=== PATIENT | female | born 1975 | race Caucasian/White ===

== ENCOUNTER 2024-09-20 10:13 | Emergency (ER) | payer MEDICAID, SELFPAY ==
[2024-09-20 10:41] VITALS: BP 105/70; PULSE 85; RESP 20; TEMP 36.9; O2SAT 96; BMI 38.9
--- NOTE | 2024-09-20 11:03 | XR_ITS ---
Examination: Hand, right 3 views Technique: Hand AP, oblique, lateral 3 views Date and time of exam: September 20, 2024 1123 hours INDICATIONS: Patient fell today with injury to the hand, hand pain FINDINGS: 3 mm old appearing bone density projecting palmar to the proximal carpal row, the appearance should be clinically correlated No dislocation No foreign body IMPRESSION: 3 mm old appearing bone density projecting palmar to the proximal carpal row Recommend wrist films follow-up
--- NOTE | 2024-09-20 11:03 | XR_ITS ---
Examination: Forearm, right, 2 views. Technique: Forearm, AP, lateral 2 views Date and time of exam: September 20, 2024 1123 hours INDICATIONS: Patient fell today with injury to the forearm, forearm pain. FINDINGS: Shaft of the radius and ulna are intact 3 mm bone density projects palmar to the proximal carpal row on the lateral view IMPRESSION: Recommend follow-up wrist films to exclude small chip fracture palmar to the proximal carpal row
--- NOTE | 2024-09-20 12:03 | XR_ITS ---
Examination: Wrist, right 3 views Technique: Wrist AP, oblique, lateral 3 views Date and time of exam: September 20, 2024 1238 hours INDICATIONS: Patient fell today with injury to the wrist, wrist pain. FINDINGS: Old appearing small bone densities palmar to the proximal carpal row, which may be off the navicular No dislocation IMPRESSION: Old appearing small bone densities palmar to the proximal carpal row, but clinical correlation advised
--- NOTE | 2024-09-20 14:15 | PD.EDUPEX ---
Upper Extremity Injury RME/HPI General Chief Complaint: Extremity Injury, Upper Stated Complaint: R ARM PAIN S/P FALL LAST NIGHT Time Seen by Provider: 09/20/24 10:16 Arrival date/time: 09/20/24 10:13 48-year-old female presents to the emergency department complaint of right arm pain after a fall in the shower today patient reports she was not having any chest pain or dizziness prior to the fall patient reports fall was mechanical Limitations: no limitations Related Data Home Medications ?Medication ?Instructions ?Recorded ?Confirmed insulin regular human 100 unit/mL 50 unit PO QDWM ##0 09/16/16 06/24/23 injection solution (Novolin R Regular U-100 Insulin) metoprolol tartrate 50 mg tablet 100 mg PO DAILY #0 tabs 09/16/16 06/25/23 quetiapine 300 mg tablet (Seroquel) 400 mg PO QPM #0 tabs 09/16/16 06/24/23 aspirin 81 mg tablet,delayed 1 tab PO HS 02/14/18 06/25/23 release empagliflozin 12.5 mg-metformin 12.5 tab PO BID 02/14/18 06/24/23 1,000 mg tablet (Synjardy) furosemide 20 mg tablet (Lasix) 20 mg PO QDAY 02/14/18 06/24/23 pantoprazole 40 mg tablet,delayed 40 mg PO BID 02/14/18 06/24/23 release sucralfate 1 gram tablet 1 g PO BID 05/02/19 06/24/23 atorvastatin 40 mg tablet 40 mg PO QDAY 05/24/21 06/24/23 melatonin 10 mg tablet 40 mg PO HS 05/24/21 06/24/23 albuterol sulfate 90 mcg/actuation 1 puff inhalation QID PRN 06/24/23 06/24/23 aerosol inhaler Bronchospasm benztropine 0.5 mg tablet 0.5 mg PO HS 06/24/23 06/24/23 fenofibrate 160 mg tablet 160 mg PO QDAY 06/24/23 06/24/23 gabapentin 600 mg tablet 600 mg PO Q4HR 06/24/23 06/24/23 icosapent ethyl 1 gram capsule 2 g PO BID 06/24/23 06/24/23 (Vascepa) insulin glargine 100 unit/mL (3 80 unit subcut QPM 06/24/23 06/24/23 mL) subcutaneous pen (Basaglar KwikPen U-100 Insulin) medroxyprogesterone 10 mg tablet 10 mg PO QDAY 06/24/23 06/24/23 (Provera) methocarbamol 500 mg tablet 750 mg PO HS 06/24/23 06/24/23 pioglitazone 45 mg tablet (Actos) 45 mg PO QDAY 06/24/23 06/24/23 topiramate 100 mg tablet (Topamax) 100 mg PO BID 06/24/23 06/24/23 Previous Rx's ?Medication ?Instructions ?Recorded acetaminophen 500 mg tablet 500 mg PO Q6H PRN fever or pain 06/25/23 #20 tabs cephalexin 500 mg capsule 500 mg PO QID #28 caps 03/01/24 hydrocodone 5 mg-acetaminophen 325 1 tab PO BID PRN pain #6 tabs 09/20/24 mg tablet ibuprofen 800 mg tablet 800 mg PO TID PRN pain #30 tabs 09/20/24 Allergies Allergy/AdvReac Type Severity Reaction Status Date / Time morphine Allergy Intermediate RED Verified 09/20/24 10:14 BLOTCHES. Review of Systems Review of Systems Systems Reviewed: All systems reviewed, normal except as documented Constitutional Constitutional: Reports system reviewed and no additional complaints, except as documented, Denies fever(s) and Denies headache(s) Eyes Eyes: Reports system reviewed and no additional complaints, except as documented and Denies blurry vision ENT Ears, Nose, Mouth, and Throat: Reports system reviewed and no additional complaints, except as documented, Denies headache(s), Denies nasal congestion and Denies nasal discharge Cardiovascular Cardiovascular: Reports system reviewed and no additional complaints, except as documented, Denies chest pain and Denies dyspnea Respiratory Respiratory: Reports system reviewed and no additional complaints, except as documented, Denies chest congestion, Denies cough and Denies dyspnea Gastrointestinal Gastrointestinal: Reports system reviewed and no additional complaints, except as documented and Denies abdominal pain Musculoskeletal Musculoskeletal: Reports system reviewed and no additional complaints, except as documented, Reports arthralgias, Denies deformity, Denies joint swelling, Denies numbness, Reports stiffness and Denies tingling Integumentary/Breasts Skin/Breast: Reports system reviewed and no additional complaints, except as documented and Denies rash Neurologic Neurologic: Reports system reviewed and no additional complaints, except as documented, Reports as per HPI, Denies headache(s), Denies numbness and Denies tingling Past Medical History Past Medical History NEUROLOGIC: Negative Neurological Disorders CARDIAC: Negative Cardiac Disorders ED Exam General Limitations: Present no limitations General appearance: Present alert and in no apparent distress Head Head exam: Present atraumatic Eye Eye exam: Present normal appearance, PERRL and EOMI; Absent conjunctival injection ENT ENT exam: Present normal exam, normal oropharynx and mucous membranes moist Neck Neck exam: Present normal inspection, full ROM and trachea midline Chest Chest inspection: Present normal inspection and symmetric chest wall rise Respiratory Respiratory exam: Present normal lung sounds bilaterally; Absent respiratory distress Cardiovascular Cardiovascular exam: Present regular rate, normal rhythm and normal heart sounds Abdominal Exam Abdominal exam: Present soft and normal bowel sounds Extremities Exam Extremities exam: Present normal inspection, full ROM, tenderness (Right wrist pain) and normal capillary refill; Absent pedal edema, joint swelling or calf tenderness Back Exam Back exam: Present normal inspection and full ROM Neurological Exam Neurological exam: Present alert, oriented X3 and CN II-XII intact Psychiatric Psychiatric exam: Present normal affect and normal mood Skin Skin exam: Present warm, dry, intact and normal color Course Quality Measures none Orders Category Date Time Status brandon wrap [Splint / Immobilizer] STAT Care 09/21/24 07:03 Active XR forearm RT 2V Stat Exams 09/20/24 11:03 Completed XR hand comp RT min 3V Stat Exams 09/20/24 11:03 Completed XR wrist comp RT min 3V Stat Exams 09/20/24 12:03 Completed Ketorolac Inj [Toradol Inj] Med 09/20/24 14:29 Discontinued 30 mg IM X1 ONE Vital Signs Vital signs: Vital Signs Temperature 98.5 F 09/20/24 10:41 Pulse Rate 85 09/20/24 10:41 Respiratory Rate 20 09/20/24 10:41 Blood Pressure 105/70 09/20/24 10:41 Pulse Oximetry (%) 96 09/20/24 10:41 Oxygen Delivery Method Room Air 09/20/24 10:41 O2 saturation 96% room air within normal limits Extremity Injury MDM Narrative MDM Narrative:: 48-year-old female presents to the emergency department complaint of right arm pain after a fall in the shower today patient reports she was not having any chest pain or dizziness prior to the fall patient reports fall was mechanical On exam patient has tenderness and pain to the right arm I do not appreciate any deformity or swelling X-rays of the right upper extremity obtained no acute fracture dislocation noted Patient placed in Brandon wrap and given Toradol here and discharged home with pain medication Explained to the patient if pain persist she will need to have a CT or MRI for further evaluation Patient data External records reviewed:: [facility] previous records Clinical information provided by:: patient Social determinants that could affect healthcare access:: none Patient has the following chronic illnesses:: Cyst How is presenting disease/condition affected by chronic disease/condition?: uneffected by Evaluation data The following diagnostics were reviewed and interpreted by me:: radiology exam(s) Lab and/or radiology exams considered but not ordered:: Radiology obtain Interpretation Summary: Reviewed by me Medications / Prescriptions Medications or Prescriptions considered but not ordered:: Given Medication administrations:: Medication Administration History Discontinued Medications Ketorolac Tromethamine (Ketorolac Inj 30 Mg/Ml Vial) 30 mg IM X1 ONE Stop: 09/20/24 14:30 Last Admin: 09/20/24 14:34 Dose: 30 mg Documented By: LP Given Consultations Consultation(s) initiated? (list below): No Diagnosis Upper Extremity Injury Differential Diagnosis: fracture of wrist and fracture of hand Most likely diagnosis given after review of the tests above:: Wrist sprain Admission Indicated Admission indicated?: not indicated Admission Request Was there a request for admission?: No Disposition Plan Disposition Plan: Discharge Discharge Attestation Discharge Attestation: The patient and all family members were given an opportunity to ask questions and understood the discharge instructions. Discharge instructions specifically effects, indications for sooner follow up or return to the emergency department, and the expected course of current diagnosis. Patient condition: Stable Discharge Plan Plan Patient Disposition: HOME (Self Care) Disposition Comment: Stable Prescriptions/Referrals Prescriptions/Med Rec: New ibuprofen 800 mg tablet 800 mg PO TID PRN (Reason: pain) Qty: 30 0RF hydrocodone-acetaminophen 5-325 mg tablet 1 tab PO BID MDD 10 PRN (Reason: pain) Qty: 6 0RF No Action quetiapine [Seroquel] 300 MG tablet 400 mg PO QPM Qty: 0 Novolin R Regular U100 Insulin 100 U/ML solution 50 unit PO QDWM Qty: 0 metoprolol tartrate 50 MG tablet 100 mg PO DAILY Qty: 0 Synjardy 12.5-1,000 mg Tablet 12.5 tab PO BID pantoprazole 40 mg Tablet,Delayed Release (Dr/Ec) 40 mg PO BID aspirin 81 mg Tablet,Delayed Release (Dr/Ec) 1 tab PO HS furosemide [Lasix] 20 mg Tablet 20 mg PO QDAY sucralfate 1 gram Tablet 1 g PO BID atorvastatin 40 mg Tablet 40 mg PO QDAY melatonin 10 mg Tablet 40 mg PO HS cephalexin 500 mg capsule 500 mg PO QID Qty: 28 0RF medroxyprogesterone [Provera] 10 mg Tablet 10 mg PO QDAY methocarbamol 500 mg Tablet 750 mg PO HS gabapentin 600 mg Tablet 600 mg PO Q4HR benztropine [Cogentin] 0.5 mg Tablet 0.5 mg PO HS pioglitazone [Actos] 45 mg Tablet 45 mg PO QDAY topiramate [Topamax] 100 mg Tablet 100 mg PO BID fenofibrate 160 mg Tablet 160 mg PO QDAY insulin glargine [Basaglar KwikPen U-100 Insulin] 100 unit/mL (3 mL) Insulin Pen 80 unit SUBCUT QPM icosapent ethyl [Vascepa] 1 gram Capsule 2 g PO BID albuterol sulfate 90 mcg/actuation Hfa Aerosol Inhaler 1 puff INHALATION QID PRN (Reason: Bronchospasm) acetaminophen 500 mg tablet 500 mg PO Q6H PRN (Reason: fever or pain) Qty: 20 0RF Referrals: Osvaldo Starr PA-C [Primary Care Provider] - In 1 week Problem List Clinical Impression: Wrist pain, right Patient/Caregiver Discharge Instructions Education Materials: ED Arthralgia Additional Instructions: Please follow up with your primary care doctor in the next 24-48hrs for any worsening symptoms return here immediately If pain persist please request outpatient CT or MRI from your PCP Print Language: Wolof Stand Alone Forms: [employer]ia Award Info., Patient Portal Info Letter Attestation Attestation The patient was seen by the midlevel practitioner. I, the co-signing physician, was present during the entire ER visit. While I did not physically examine the patient, I was available for consultation as needed.
[2024-09-20] MEDS: KETOROLAC INJ 30 MG/ML VIAL IM (14:34)
== END 2024-09-20 14:43 | disposition home or self-care (01) ==
PROVIDERS: Emergency Provider Emergency Medicine; PCP Physician Assistant
DX: S69.91XA Unspecified injury of right wrist, hand and finger(s), initial encounter (principal); S59.911A Unspecified injury of right forearm, initial encounter; W18.2XXA Fall in (into) shower or empty bathtub, initial encounter
CPT/HCPCS: 73090; 73110; 73130; 96372; 99283; J1885

== ENCOUNTER 2025-03-23 20:06 | Inpatient (IN) | payer MEDICAID, SELFPAY ==
[2025-03-23 20:07] VITALS: BMI 39.9
[2025-03-23 21:27] VITALS: BP 144/87; PULSE 117; RESP 20; TEMP 37.1; O2SAT 97
--- NOTE | 2025-03-23 21:53 | EKG_ITS ---
[facility] Test Date: 2025-03-23 Pat Name: ARNAUD SILVERIO Department: Room: - Gender: Female Fiction [employer] Nonfiction Author: : [id number] Requested By: Popeye Westbrook Order Number: [id number] Reading MD: Popeye Westbrook Measurements Intervals [place] Rate: 136 P: 58 OR: 134 QRS: -14 QRSD: 90 T: 56 QT: 307 QTc: 463 Interpretive Statements SINUS TACHYCARDIA POSSIBLE RIGHT VENTRICULAR CONDUCTION DELAY [RSR (QR) IN V1/V2] POSSIBLE ANTERIOR MYOCARDIAL INFARCTION , PROBABLY OLD [30 ms Q WAVE IN V3/V4, OR R < 0.2 mV IN V4] ABNORMAL RHYTHM ECG Compared to ECG 06/24/2023 12:37:16 Myocardial infarct finding now present Sinus rhythm no longer present /store/[id number]
--- NOTE | 2025-03-23 21:53 | PD.EDRME ---
Rapid Medical Screening Exam [facility] Arrival date/time: 03/23/25 20:06 49F with history of unknown heart condition, DM and bipolar disorder presents to ED with 5 days of epigastric, N/V, red stool, and MORRIS. Patient denies URI symptoms. Patient has been taking Zofran w/o relief. Chief Complaint: Nausea/Vomiting/Diarrhea Vital signs: Vital Signs Temperature 98.7 F 03/23/25 21:27 Pulse Rate 117 H 03/23/25 21:27 Respiratory Rate 20 03/23/25 21:27 Blood Pressure 144/87 H 03/23/25 21:27 Pulse Oximetry (%) 97 03/23/25 21:27 Oxygen Delivery Method Room Air 03/23/25 21:27
[2025-03-23] MEDS: METOCLOPRAMIDE 5 MG TABLET 10 MG PO (22:15)
[2025-03-23 22:32] LABS: Basophils # (Auto) 0.1 Thou/mm3 (0.0-0.2); Basophils % (Auto) 1 % (0-2.5); Eosinophils % (Auto) 0 % (0-10); Hematocrit 41.9 % (36.0-46.0); Hemoglobin 13.7 g/dL (12.0-16.0); Immature Granulocytes % (Auto) 1 % (0-0); Immature Granulocytes Auto 0.06 Thou/mm3 (0.00-0.00); Lymphocytes # (Auto) 3.3 Thou/mm3 (1.0-4.8); Lymphocytes % (Auto) 29 % (10-50); Mean Corpuscular HGB Conc 32.7 g/dl (31.0-37.0); Mean Corpuscular Hemoglobin 28.9 pg (25.0-35.0); Mean Corpuscular Volume 88 fL (80-100); Monocytes # (Auto) 0.6 Thou/mm3 (0.0-0.8); Monocytes % (Auto) 5 % (0-12); Neutrophils # (Auto) 7.4 Thou/mm3 (1.8-7.7); Neutrophils % (Auto) 65 % (37-80); Nucleated Red Blood Cell % 0 /100 WBC (0); PCO2, Venous 34 mmHg (36-56); Platelet Count 311 Thou/mm3 (140-440); RDW Standard Deviation 42.2 fL (36.4-46.3); Red Blood Count 4.74 Miln/mm3 (4.00-5.20); White Blood Count 11.4 Thou/mm3 (3.6-11.0); pH, Venous 7.25 (7.33-7.66)
[2025-03-23 22:33] LABS: Base Excess, Venous -11 (-3-3); O2 Saturation, Venous 45 % (96-97); PO2, Venous 27 mmHg (15-58)
[2025-03-23 22:42] LABS: Beta Hydroxybutyrate 5.9 mmol/L (<0.6)
[2025-03-23 23:03] LABS: Alanine Aminotransferase 40 U/L (10-49); Albumin, Serum 5.3 gm/dL (3.5-5.0); Albumin/Globulin Ratio 1.6 (1.2-2.2); Alkaline Phosphatase 67 U/L (46-116); Anion Gap 23 (7-16); Aspartate Amino Transferase 18 U/L (0-34); BUN/Creatinine Ratio 5 Ratio (12-20); Bilirubin,Total 0.5 mg/dL (0.3-1.2); Blood Urea Nitrogen 6 mg/dL (9-23); Calcium 9.4 mg/dL (8.3-10.6); Calcium (Corrected) 9.4 mg/dL (8.5-10.1); Chloride 98 mMol/L (98-107); Creatinine (Component) 1.1 mg/dL (0.6-1.3); Estimated Creatinine Clearance 86.6 mL/min (>60); Globulin 3.4 gm/dL (2.3-3.5); Glucose 362 mg/dL (74-106); Lipase 43 U/L (12-53); Osmolality,Calculated 282 (275-295); Potassium 4.3 mMol/L (3.4-5.1); Procalcitonin 0.09 ng/ml (0.0-0.49); Sodium 135 mMol/L (136-145); Total Protein 8.7 gm/dL (5.7-8.2); eGFR > 60 See Note
[2025-03-23 23:05] LABS: Carbon Dioxide 14.1 mMol/L (20.0-31.0); Troponin I 0.088 ng/mL (0.0-0.045)
[2025-03-23 23:49] LABS: Collection Type, Urine Clean Catch; RBC,Urine 0 /hpf (0-3); WBC,Urine 0 /hpf (0-5)
[2025-03-23 23:53] VITALS: BP 114/89; PULSE 124; RESP 18; TEMP 36.7; O2SAT 99
[2025-03-24] VITALS (47 sets, daily range): BP systolic 74–178; BP diastolic 57–110; PULSE 90–130; RESP 1–150; TEMP 36.2–37.2; O2SAT 90–100; BMI 39.9; BMI 37.6; BMI 37.7
[2025-03-24] MEDS: ONDANSETRON INJ 2 MG/ML INJ 2 ML 4 MG IVP (00:21)
[2025-03-24] MEDS: RINGERS LACTATED 1000 ML 1,000 ML 999 ML IV ×2 (00:23→01:13)
--- NOTE | 2025-03-24 00:24 | PD.EDNV ---
Nausea/Vomit./Diarrhea-RME/HPI General Chief complaint: Nausea/Vomiting/Diarrhea Stated complaint: VOMITING, FEVER, HEADACHE Arrival date/time: 03/23/25 20:06 Limitations: no limitations RME / HPI RME / HPI Narrative: 03/23/25 20:06 49F with history of unknown heart condition, DM and bipolar disorder presents to ED with 5 days of epigastric, N/V, red stool, and MORRIS. Patient denies URI symptoms. Patient has been taking Zofran w/o relief. DR. CARPIO?S MAIN ED EVALUATION: 49-year-old female with history of Hypercholesterolemia, Hypertension, Asthma, Ulcer, Gastroesophageal Reflux Disease, and Obesity presenting to the emergency department via private auto who is presenting for chief complaint of epigastric abdominal pain, nausea, vomiting, red stool and headache x 5 days. Patient has tried Zofran with no relief. Patient denies urinary or other associated symptoms or medical complaints. - PMH:?Hypercholesterolemia, Hypertension, Asthma, Ulcer, Gastroesophageal Reflux Disease, Obesity - PSH: Arthroscopy, Tubal Ligation - Social history: Denies - Current medications: Reviewed PCP is Espinoza Lugo MD MD complaint: nausea, vomiting, abdominal pain and other (red stool, MORRIS) Onset (ago): day(s) (5) Related Data Home Medications ?Medication ?Instructions ?Recorded ?Confirmed insulin regular human 100 unit/mL 50 unit PO QDWM ##0 09/16/16 06/24/23 injection solution (Novolin R Regular U-100 Insulin) metoprolol tartrate 50 mg tablet 100 mg PO DAILY #0 tabs 09/16/16 06/25/23 quetiapine 300 mg tablet (Seroquel) 400 mg PO QPM #0 tabs 09/16/16 06/24/23 aspirin 81 mg tablet,delayed 1 tab PO HS 02/14/18 06/25/23 release empagliflozin 12.5 mg-metformin 12.5 tab PO BID 02/14/18 06/24/23 1,000 mg tablet (Synjardy) furosemide 20 mg tablet (Lasix) 20 mg PO QDAY 02/14/18 06/24/23 pantoprazole 40 mg tablet,delayed 40 mg PO BID 02/14/18 06/24/23 release sucralfate 1 gram tablet 1 g PO BID 05/02/19 06/24/23 atorvastatin 40 mg tablet 40 mg PO QDAY 05/24/21 06/24/23 melatonin 10 mg tablet 40 mg PO HS 05/24/21 06/24/23 albuterol sulfate 90 mcg/actuation 1 puff inhalation QID PRN 06/24/23 06/24/23 aerosol inhaler Bronchospasm benztropine 0.5 mg tablet 0.5 mg PO HS 06/24/23 06/24/23 fenofibrate 160 mg tablet 160 mg PO QDAY 06/24/23 06/24/23 gabapentin 600 mg tablet 600 mg PO Q4HR 06/24/23 06/24/23 icosapent ethyl 1 gram capsule 2 g PO BID 06/24/23 06/24/23 (Vascepa) insulin glargine 100 unit/mL (3 80 unit subcut QPM 06/24/23 06/24/23 mL) subcutaneous pen (Basaglar KwikPen U-100 Insulin) medroxyprogesterone 10 mg tablet 10 mg PO QDAY 06/24/23 06/24/23 (Provera) methocarbamol 500 mg tablet 750 mg PO HS 06/24/23 06/24/23 pioglitazone 45 mg tablet (Actos) 45 mg PO QDAY 06/24/23 06/24/23 topiramate 100 mg tablet (Topamax) 100 mg PO BID 06/24/23 06/24/23 Previous Rx's ?Medication ?Instructions ?Recorded acetaminophen 500 mg tablet 500 mg PO Q6H PRN fever or pain 06/25/23 #20 tabs cephalexin 500 mg capsule 500 mg PO QID #28 caps 03/01/24 hydrocodone 5 mg-acetaminophen 325 1 tab PO BID PRN pain #6 tabs 09/20/24 mg tablet ibuprofen 800 mg tablet 800 mg PO TID PRN pain #30 tabs 09/20/24 Allergies Allergy/AdvReac Type Severity Reaction Status Date / Time morphine Allergy Intermediate RED Verified 03/23/25 20:06 BLOTCHES. Review of Systems Review of Systems Systems Reviewed: All systems reviewed, normal except as documented Constitutional Constitutional: Reports headache(s) ENT Ears, Nose, Mouth, and Throat: Reports headache(s) Gastrointestinal Gastrointestinal: Reports abdominal pain, Reports hematochezia, Reports nausea and Reports vomiting Genitourinary Genitourinary: Denies dysuria, Denies urinary incontinence and Denies urinary urgency Neurologic Neurologic: Reports headache(s) Past Medical History Past Medical History CARDIAC: Positive Cardiac Arrhythmia, Hypercholesterolemia and Hypertension RESPIRATORY: Positive Asthma GASTROINTESTINAL: Positive Gastrointestinal Disorders, Ulcer, Gastroesophageal Reflux Disease and Obesity REPRODUCTIVE: Positive Previous Pregnancies MUSCULOSKELETAL: Positive Musculoskeletal Disorders and Arthritis ENDOCRINE: Positive Endocrine Disorders and Diabetes Mellitus Type 2 PSYCHO/SOCIAL: Positive Bipolar Disorder and Anxiety OTHER HISTORY: Positive Autoimmune Disease and Chicken Pox Family History FAMILY HISTORY: Positive Family Respiratory Disorders, Family Cardiac Disorders and Family Cancer Surgical History SURGICAL: Positive Arthroscopy and Tubal Ligation Social History SMOKING STATUS: Never smoker ED Exam General Limitations: Present no limitations General appearance: Present alert Head Head exam: Present atraumatic Eye Eye exam: Present normal appearance and PERRL ENT ENT exam: Present normal exam, normal oropharynx and mucous membranes dry Neck Neck exam: Present normal inspection and full ROM Chest Chest inspection: Present normal inspection Respiratory Respiratory exam: Present normal lung sounds bilaterally Cardiovascular Cardiovascular exam: Present regular rate, normal rhythm and normal heart sounds Abdominal Exam Abdominal exam: Present soft and normal bowel sounds Extremities Exam Extremities exam: Present normal inspection and full ROM Back Exam Back exam: Present normal inspection and full ROM Neurological Exam Neurological exam: Present alert, oriented X3 and CN II-XII intact Psychiatric Psychiatric exam: Present normal affect and normal mood Skin Skin exam: Present warm, dry, intact and normal color Course Quality Measures none Orders Category Date Time Status Bedside COVID-19 Antigen Test NOW Care 03/23/25 21:32 Active Bedside Influenza A&B Antigen Test NOW Care 03/23/25 21:32 Completed EKG (ED ONLY) *Do not use* NOW Care 03/23/25 21:53 Completed IV [Insert IV] NOW Care 03/23/25 23:09 Active EKG (ED Only) Stat Exams 03/23/25 21:53 Draft Beta Hydroxybutyrate Stat Lab 03/23/25 22:12 Completed CBC Stat Lab 03/23/25 22:12 Completed CMP [Comprehensive Metabolic Panel] Stat Lab 03/23/25 22:12 Completed Drug Screen,Urine Stat Lab 03/23/25 23:39 Completed HCG Qualitative,Urine Stat Lab 03/23/25 23:39 Completed Lactate (Lactic Acid) Stat Lab 03/23/25 22:12 Completed Lipase Stat Lab 03/23/25 22:12 Completed Procalcitonin Stat Lab 03/23/25 22:12 Completed Troponin I Stat Lab 03/23/25 22:12 Completed Urinalysis, C/S if Indicated Stat Lab 03/23/25 23:39 Completed VBG [Venous Blood Gas] Stat Lab 03/23/25 22:12 Completed Metoclopramide [Reglan] Med 03/23/25 21:52 Discontinued 10 mg PO X1 ONE Ondansetron Inj [Zofran Inj] Med 03/24/25 00:08 Discontinued 4 mg IVP X1 ONE Ringers Lactated 1000 ml [Lactated Ringers] 1,000 ml Med 03/24/25 00:09 Discontinued IV 999 mls/hr Ringers Lactated 1000 ml [Lactated Ringers] 1,000 ml Med 03/24/25 00:09 Discontinued IV 999 mls/hr Vital Signs Vital signs: Vital Signs Temperature 98.7 F 03/23/25 21:27 Pulse Rate 117 H 03/23/25 21:27 Respiratory Rate 20 03/23/25 21:27 Blood Pressure 144/87 H 03/23/25 21:27 Pulse Oximetry (%) 97 03/23/25 21:27 Oxygen Delivery Method Room Air 03/23/25 21:27 Nausea/Vomiting/Diarrhea MDM Narrative MDM Narrative:: Scribe Attestation: 03/23/2025 Windy Mcclain am scribing for and in the presence of Dr. Carpio. Provider Notation: Although this document has been carefully reviewed, there may still be some phonetic and other typographical errors.? These errors are purely grammatical due to imperfections in the software program and should not be construed in any way to compromise the substance of the patient's medical care during this visit. 49-year-old female with history of Hypercholesterolemia, Hypertension, Asthma, Ulcer, Gastroesophageal Reflux Disease, and Obesity presenting to the emergency department via private auto who is presenting for chief/stated complaint of epigastric abdominal pain, nausea, vomiting, red stool and headache x 5 days. ROS: abdominal pain, nausea, vomiting, red stool. Denies urinary symptoms. Differential diagnoses include Patient data External records reviewed:: [facility] previous records ( Reviewed prior ED records from 09/20/24. Patient was seen for Wrist pain, right.) Clinical information provided by:: patient Social determinants that could affect healthcare access:: none Patient has the following chronic illnesses:: Cardiac Arrhythmia, Hypercholesterolemia, Hypertension, Asthma, Ulcer, Gastroesophageal Reflux Disease, Obesity, Arthritis, Diabetes Mellitus Type 2, Bipolar Disorder, Anxiety, Autoimmune Disease How is presenting disease/condition affected by chronic disease/condition?: exacerbated by Evaluation data The following diagnostics were reviewed and interpreted by me:: lab results, radiology exam(s) and EKG tracing(s) Lab and/or radiology exams considered but not ordered:: None Interpretation Summary: RADIOLOGY Chest X-Ray: LABS Medications / Prescriptions Medications / Prescriptions considered but not ordered:: None Medication administrations:: Medication Administration History Acetaminophen (Acetaminophen 325 Mg Tablet) 650 mg PO Q6H PRN PRN Reason: Fever >101.5 Stop: 04/23/25 00:34 Albuterol (Albuterol Inh 8 Gm) 1 puff INH QID PRN PRN Reason: Bronchospasm Stop: 04/23/25 00:42 Aspirin (Aspirin Ec 81 Mg Tabec) 81 mg PO HS MICHAEL Stop: 04/23/25 20:59 Atorvastatin Calcium (Atorvastatin Calcium 20 Mg Tablet) 40 mg PO QDAY MICHAEL Stop: 04/23/25 08:59 Dextrose (Dextrose 50%-Water Inj 50 Ml Syringe) 25 ml IV PRNMRX1 PRN PRN Reason: Blood Sugar - Low Enoxaparin Sodium (Enoxaparin Sod Inj 40 Mg/0.4 Ml Syringe) 40 mg SC QDAY MICHAEL Stop: 04/07/25 08:59 Gabapentin (Gabapentin 300 Mg Capsule) 600 mg PO Q4HR MICHAEL Stop: 04/23/25 01:59 Last Admin: 03/24/25 01:26 Dose: 600 mg Documented By: ROSAURA Potassium Chloride (Kcl Ivpb) 10 meq in 100 mls @ 100 mls/hr IV .Q1H PRN PRN Reason: IF POTASSIUM LESS THAN 3.3 Stop: 04/23/25 00:34 Magnesium Sulfate (Magnesium Sulfate Ivpb) 2 gm in 50 mls @ 25 mls/hr IV .Q2H PRN PRN Reason: PER DKA PROTOCOL Stop: 04/23/25 00:34 Insulin Human Regular 100 unit (/ IV Miscellaneous Supplies) 100 mls @ 12.247 mls/hr IV .Q8H10M PRN; Protocol PRN Reason: PER PROTOCOL Stop: 04/23/25 00:34 Last Admin: 03/24/25 01:25 Dose: 0.1 unit/kg/hr, 12.247 mls/hr Documented By: ROSAURA Co-signed By: CHRISTINE Dextrose/Lactated Ringer's (D5-Lr) 1,000 mls @ 250 mls/hr IV .Q4H PRN PRN Reason: PER PROTOCOL Stop: 04/23/25 00:34 Last Admin: 03/24/25 04:25 Dose: 250 mls/hr Documented By: DERIC Lactated Ringer's (Lactated Ringers) 1,000 mls @ 250 mls/hr IV .Q4H PRN PRN Reason: PER PROTOCOL Stop: 03/25/25 00:34 Last Infusion: 03/24/25 04:27 Dose: 0 mls/hr Documented By: Admin: 03/24/25 01:39 Dose: 250 mls/hr Documented By: ROSAURA Potassium Chloride 20 meq/ (Lactated Ringer's) 1,010 mls @ 250 mls/hr IV .Q4H3M PRN PRN Reason: K LEVEL 3.3 TO 5.3mM/L Stop: 04/23/25 00:34 Potassium Chloride 40 meq/ (Lactated Ringer's) 1,020 mls @ 250 mls/hr IV .Q4H5M PRN PRN Reason: K LEVEL < 3.3 mM/L Stop: 04/23/25 00:34 Potassium Chloride 40 meq/ (Dextrose/Lactated Ringer's) 1,020 mls @ 250 mls/hr IV .Q4H5M PRN PRN Reason: K LEVEL < 3.3mM/L Stop: 04/23/25 00:34 Potassium Cl/Dextrose/Lact Ringer's (Kcl 20 Meq/L In D5-Lr) 20 meq in 1,000 mls @ 250 mls/hr IV .Q4H PRN PRN Reason: K LEVEL 3.3 TO 5.3 mM/L Stop: 04/23/25 00:34 Potassium Chloride (Kcl Ivpb) 10 meq in 100 mls @ 50 mls/hr IV PRN PRN PRN Reason: K LEVEL 3.3 to 5.3 & BG > 200 Stop: 04/23/25 00:34 Last Admin: 03/24/25 03:42 Dose: 50 mls/hr Documented By: Infusion: 03/24/25 03:38 Dose: Infused Documented By: Admin: 03/24/25 01:38 Dose: 50 mls/hr Documented By: ROSAURA Potassium Phosphate (Pot Phos 15 Mmol In Ns 250 Ml) 15 mmol in 250 mls @ 62.5 mls/hr IV PRN PRN PRN Reason: Phosphate <= 1mg/dL Stop: 04/23/25 00:34 Sodium Phosphate 15 mmol/ (Sodium Chloride) 255 mls @ 62.5 mls/hr IV .Q4H5M PRN PRN Reason: Phosphate <= 1mg/dL and K> than 5.3 Stop: 04/23/25 00:34 Methocarbamol (Methocarbamol 500 Mg Tablet) 750 mg PO [facility] Stop: 04/23/25 20:59 Metoprolol Tartrate (Metoprolol Tartrate 25 Mg Tablet) 100 mg PO DAILY [facility] Stop: 04/23/25 08:59 Non-Formulary Medication (Fenofibrate) 160 mg PO QDAY [facility] Stop: 04/23/25 08:59 Non-Formulary Medication (Icosapent Ethyl [Vascepa]) 2 gm PO BID [facility] Stop: 04/23/25 08:59 Non-Formulary Medication (Medroxyprogesterone [Provera]) 10 mg PO QDAY [facility] Stop: 04/23/25 08:59 Non-Formulary Medication (Melatonin) 40 mg PO [facility] Stop: 04/23/25 20:59 Ondansetron HCl (Ondansetron Inj 2 Mg/Ml Inj 2 Ml) 4 mg IV Q6H PRN; Protocol PRN Reason: NAUSEA OR VOMITING Stop: 04/23/25 00:34 Pantoprazole Sodium (Pantoprazole Inj 40 Mg Vial) 40 mg IVP QDAY MICHAEL Stop: 04/23/25 08:59 Quetiapine Fumarate (Quetiapine Fumarate 100 Mg Tablet) 400 mg PO QPM MICHAEL Stop: 04/23/25 20:59 Sennosides (Senna Tablet) 1 tab PO QDAY MICHAEL; Protocol Stop: 04/23/25 08:59 Sodium Bicarbonate (Sodium Bicarb Inj 8.4% Syr 50 Ml Syringe) 50 ml IV PRN PRN PRN Reason: For ph <= to 7.0 Stop: 04/23/25 00:34 Topiramate (Topiramate 100 Mg Tablet) 100 mg PO BID [facility] Stop: 04/23/25 08:59 Discontinued Medications Lactated Ringer's (Lactated Ringers) 1,000 mls @ 999 mls/hr IV .Q1H1M ONE Stop: 03/24/25 01:09 Last Infusion: 03/24/25 01:42 Dose: Infused Documented By: Admin: 03/24/25 00:23 Dose: 999 mls/hr Documented By: CVL Lactated Ringer's (Lactated Ringers) 1,000 mls @ 999 mls/hr IV .Q1H1M ONE Stop: 03/24/25 01:09 Last Admin: 03/24/25 01:13 Dose: 999 mls/hr Documented By: ROSAURA Metoclopramide HCl (Metoclopramide 5 Mg Tablet) 10 mg PO X1 ONE Stop: 03/23/25 21:53 Last Admin: 03/23/25 22:15 Dose: 10 mg Documented By: JAYSON Ondansetron HCl (Ondansetron Inj 2 Mg/Ml Inj 2 Ml) 4 mg IVP X1 ONE; Protocol Stop: 03/24/25 00:09 Last Admin: 03/24/25 00:21 Dose: 4 mg Documented By: CVL See above if any Consultations Consultation(s) initiated? (list below): Yes Consultation #1 (Physician, Specialty, Details): Dr. Brambila made aware of the patient?s HPI, PMHx, lab and/or radiology results. Treatment plan was discussed. Will admit for further evaluation and management. Accepts patient for admission. Time: 00:14 Diagnosis Nausea Differential Diagnosis: traveler's diarrhea, food poisoning, gastroenteritis, dehydration and other Most likely diagnosis given after review of the tests above:: DKA Admission Indicated Admission indicated?: indicated Admission Request Was there a request for admission?: Yes Admission Attestation Admission request attestation: Discussed case with [] from Hospitalist service regarding admission. Discussed patients ED course, exam findings, labs, and radiology results. The Hospitalist [agrees,declines] to accept the patient for admission. Disposition Plan Disposition Plan: Admit Discharge Plan Plan Patient Disposition: Admit Acute Care w/in Hospital Patient condition on transfer: Stable Problem List Clinical Impression: Diabetic ketoacidosis
[2025-03-24 00:25] LABS: Bacteria,Urine Rare; Bilirubin,Urine Negative (Negative); Blood,Urine Negative (Negative); Clarity,Urine Clear (Clear/Hazy); Color,Urine Lt-Yellow (Lt Yel-Yel); Culture Indicated,Urine Not Indicated; Glucose, Urine 4+ (Negative); Ketones,Urine 4+ (Negative); Leukocyte Esterase,Urine Negative (Negative); Nitrite,Urine Negative (Negative); PH,Urine 5.5 (5.0-7.0); Protein,Urine 1+ (Neg - Trace); Specific Gravity,Urine 1.038 (1.001-1.035); Squamous Epithelial Cell,Urine 2 /hpf (0-5); Urobilinogen,Urine Negative mg/dL (0.0-1.0)
[2025-03-24 00:27] LABS: HCG Qualitative,Urine Negative
[2025-03-24 00:28] LABS: Amphetamine/Methamp Scrn,U Negative (Negative); Barbiturate Screen,Urine Negative (Negative); Benzodiazepines Screen,Urine Negative (Negative); Benzoylecgonine Screen, Ur Negative (Negative); Fentanyl Screen,Urine Negative (Negative); Opiate Screen,Urine Negative (Negative); THC Screen,Urine Negative (Negative)
--- NOTE | 2025-03-24 00:37 | XR_ITS ---
Examination: AP chest single view TECHNIQUE: AP portable upright chest single view Date and time: The 2024 0046 hours Comparison 07/15/2021 INDICATIONS: Onset epigastric pain nausea vomiting red stools beginning 5 days ago FINDINGS: Normal heart size. Lungs are clear. The osseous structures are intact IMPRESSION:. No active disease
--- NOTE | 2025-03-24 01:08 | ESHP_ITS ---
<Statement entered by Sylvain Brambila MD - 03/24/25 13:51> I have discussed and was present for the essential components of the history, physical examination, diagnosis, and treatment plan with the resident. I agree with the patient's care as documented by the resident and amended herein by me. Sylvain Brambila MD FACP. Documentation for date of: 03/24/25 HPI History of Present Illness Chief complaint: Intractable nausea and vomiting History of present illness: Ms. Denson is a 49-year-old female with past medical history of insulin- dependent diabetes mellitus since the age of 20, manic bipolar disease, history of arrhythmia on metoprolol, hyperlipidemia, insomnia who presented to [facility] with chief complaint of intractable nausea and vomiting. Patient states that on Friday she began to feel ill with significant amounts of vomiting of 5-6 episodes daily. She states that the vomitus is primarily been stomach acid and water. She denies any recent sick contacts, changes in diet, changes in water sources, increased stress or any environmental changes. She states that since Friday she has been unable to take any of her medications including her insulin. She states that she has never had a prior episode of DKA and is unsure of what her fingerstick blood glucose readings are at home. Patient states that she takes 80 units of long-acting insulin nightly and 50 units of Premeal insulin prior to her meals. She does not use a chronic glucose monitor and has primarily been using fingersticks to measure her blood sugar. She states for her psychiatric history she takes Seroquel 400 mg at night, Topamax 100 mg twice daily and Abilify once a month. PMH: Type 2 insulin-dependent diabetes mellitus, manic bipolar, history of arrhythmia on metoprolol, hyperlipidemia, insomnia Past surgical history: Tubal ligation more than 20 years prior Social history: Patient lives with her daughter and requires support for ADLs and is able to ambulate with walker. Patient denies any alcohol, tobacco, or recreational drug use. Allergies: Morphine, hives Family history: Mother from AIDS following blood transfusion, dad from a cancer in his neck ED vitals: BP 144/87, pulse 117, RR 20, temp afebrile, O2 sat 97 on room air ED labs: WBC 11.4, hemoglobin 13.7, sodium 135, bicarb 14.1, anion gap of 23, glucose 362, troponin 0.088, beta hydroxybutyrate of 5.9. U/A: 1+ protein 4+ glucose 4+ ketones ED imaging: Chest x-ray: Appears normal. No active disease EKG with sinus tachycardia pulse rate of 136 ED management:2 L of LR, Zofran 4 mg IV push x 1, Reglan 10 mg p.o. x 1 Dispo: Patient is being admitted to ICU for management of diabetic ketoacidosis Review of Systems Review of Systems Systems Reviewed: All systems reviewed, normal except as documented Exam Vital Signs Temp Pulse Resp BP Pulse Ox O2 Del Method 98.1 F 124 H 18 114/89 H 99 Room Air 03/23/25 23:53 03/23/25 23:53 03/23/25 23:53 03/23/25 23:53 03/23/25 23:53 03/23/25 23:53 Narrative Exam GENERAL: Alert and oriented x 3. Mildly distressed with nausea. EYES: EOMI. Anicteric. HEENT: M dry mucous membranes. No scleral icterus. No cervical lymphadenopathy. LUNGS: Clear to auscultation bilaterally. No accessory muscle use. CARDIOVASCULAR: Sinus tachycardia. No murmur. No JVD. ABDOMEN: Soft, non-tender and non-distended. No palpable masses. EXTREMITIES: All 4 extremeties intact. No edema. Nontender. SKIN: No rashes or lesions. Warm. Tattoos on bilateral lower extremities NEUROLOGIC: No focal neurological deficits. CN II-XII grossly intact, but not individually tested. PSYCHIATRIC: Cooperative. Appropriate mood and affect. Results: Labs 03/23/25 22:12 03/23/25 22:12 Labs: Short CBC 03/23/25 Range/Units 22:12 WBC 11.4 H (3.6-11.0) Thou/mm3 Hgb 13.7 (12.0-16.0) g/dL Hct 41.9 (36.0-46.0) % Plt Count 311 (140-440) Thou/mm3 BMP 03/23/25 22:12 Sodium 135 L Potassium 4.3 Chloride 98 Carbon Dioxide 14.1 L* BUN 6 L Creatinine 1.1 Glucose 362 H Calcium 9.4 Cardiac Enzymes 03/23/25 Range/Units 22:12 Troponin I 0.088 H* (0.0-0.045) ng/mL Liver Function 03/23/25 Range/Units 22:12 Total Bilirubin 0.5 (0.3-1.2) mg/dL AST 18 (0-34) U/L ALT 40 (10-49) U/L Alkaline Phosphatase 67 (46-116) U/L Albumin 5.3 H (3.5-5.0) gm/dL Urine 03/23/25 Range/Units 23:39 Urine Color Lt-Yellow (Lt Yel-Yel) Urine Clarity Clear (Clear/Hazy) Urine pH 5.5 (5.0-7.0) Ur Specific [place] 1.038 H (1.001-1.035) Urine Protein 1+ A (Neg - Trace) Urine Glucose (UA) 4+ A (Negative) ABG Interpretation ABG results: 03/23/25 22:12 VBG pH 7.25 L VBG pCO2 34 L VBG pO2 27 VBG Base Excess -11 L Quality Measures Quality Measures none Medications Home Medications and Allergies Home Medications ?Medication ?Instructions ?Recorded ?Confirmed ?Type insulin regular human 100 unit/mL 50 unit PO QDWM ##0 09/16/16 06/24/23 History injection solution (Novolin R Regular U-100 Insulin) metoprolol tartrate 50 mg tablet 100 mg PO DAILY #0 ta bs 09/16/16 06/25/23 History quetiapine 300 mg tablet (Seroquel) 400 mg PO QPM #0 t abs 09/16/16 06/24/23 History aspirin 81 mg tablet,delayed 1 tab PO HS 02/14/1806/04 History release empagliflozin 12.5 mg-metformin 12.5 tab PO BID 06/24/23 History 1,000 mg tablet (Synjardy) furosemide 20 mg tablet (Lasix) 20 mg PO QDAY 02/14/18 06/24/23 History pantoprazole 40 mg tablet,delayed 40 mg PO BID 8 06/24/23 History release sucralfate 1 gram tablet 1 g PO BID 05/02/19 06/24/23 History atorvastatin 40 mg tablet 40 mg PO QDAY 05/24/2106/24 History melatonin 10 mg tablet 40 mg PO HS 05/24/21 3 History albuterol sulfate 90 mcg/actuation 1 puff inhalation Q ID PRN 06/24/23 06/24/23 History aerosol inhaler Bronchospasm benztropine 0.5 mg tablet 0.5 mg PO HS 06/24/23 History fenofibrate 160 mg tablet 160 mg PO QDAY 06/24/2306/04 History gabapentin 600 mg tablet 600 mg PO Q4HR 06/24/2306/04 History icosapent ethyl 1 gram capsule 2 g PO BID 06/24/23 History (Vascepa) insulin glargine 100 unit/mL (3 80 unit subcut QPM 06/24/23 History mL) subcutaneous pen (Basaglar KwikPen U-100 Insulin) medroxyprogesterone 10 mg tablet 10 mg PO QDAY 3 06/24/23 History (Provera) methocarbamol 500 mg tablet 750 mg PO HS 06/24/2306/04 History pioglitazone 45 mg tablet (Actos) 45 mg PO QDAY 06/24/23 History topiramate 100 mg tablet (Topamax) 100 mg PO BID 06/2406/24/23 History Allergies Allergy/AdvReac Type Severity Reaction Status Date / Time morphine Allergy Intermediate RED Verified 03/23/25 20:06 BLOTCHES. Visit Medications Acetaminophen (Acetaminophen 325 Mg Tablet) 650 mg PO Q6H PRN PRN Reason: Fever >101.5 Stop: 04/23/25 00:34 Albuterol (Albuterol Inh 8 Gm) 1 puff INH QID PRN PRN Reason: Bronchospasm Stop: 04/23/25 00:42 Aspirin (Aspirin Ec 81 Mg Tabec) 81 mg PO HS MICHAEL Stop: 04/23/25 20:59 Atorvastatin Calcium (Atorvastatin Calcium 20 Mg Tablet) 40 mg PO QDAY MICHAEL Stop: 04/23/25 08:59 Dextrose (Dextrose 50%-Water Inj 50 Ml Syringe) 25 ml IV PRNMRX1 PRN PRN Reason: Blood Sugar - Low Enoxaparin Sodium (Enoxaparin Sod Inj 40 Mg/0.4 Ml Syringe) 40 mg SC QDAY MICHAEL Stop: 04/07/25 08:59 Gabapentin (Gabapentin 300 Mg Capsule) 600 mg PO Q4HR MICHAEL Stop: 04/23/25 01:59 Lactated Ringer's (Lactated Ringers) 1,000 mls @ 999 mls/hr IV .Q1H1M ONE Stop: 03/24/25 01:09 Last Admin: 03/24/25 00:23 Dose: 999 mls/hr Lactated Ringer's (Lactated Ringers) 1,000 mls @ 999 mls/hr IV .Q1H1M ONE Stop: 03/24/25 01:09 Potassium Chloride (Kcl Ivpb) 10 meq in 100 mls @ 100 mls/hr IV .Q1H PRN PRN Reason: IF POTASSIUM LESS THAN 3.3 Stop: 04/23/25 00:34 Magnesium Sulfate (Magnesium Sulfate Ivpb) 2 gm in 50 mls @ 25 mls/hr IV .Q2H PRN PRN Reason: PER DKA PROTOCOL Stop: 04/23/25 00:34 Insulin Human Regular 100 unit (/ IV Miscellaneous Supplies) 100 mls @ 12.247 mls/hr IV .Q8H10M PRN; Protocol PRN Reason: PER PROTOCOL Stop: 04/23/25 00:34 Dextrose/Lactated Ringer's (D5-Lr) 1,000 mls @ 250 mls/hr IV .Q4H PRN PRN Reason: PER PROTOCOL Stop: 04/23/25 00:34 Lactated Ringer's (Lactated Ringers) 1,000 mls @ 250 mls/hr IV .Q4H PRN PRN Reason: PER PROTOCOL Stop: 03/25/25 00:34 Potassium Chloride 20 meq/ (Lactated Ringer's) 1,010 mls @ 250 mls/hr IV .Q4H3M PRN PRN Reason: K LEVEL 3.3 TO 5.3mM/L Stop: 04/23/25 00:34 Potassium Chloride 40 meq/ (Lactated Ringer's) 1,020 mls @ 250 mls/hr IV .Q4H5M PRN PRN Reason: K LEVEL < 3.3 mM/L Stop: 04/23/25 00:34 Potassium Chloride 40 meq/ (Dextrose/Lactated Ringer's) 1,020 mls @ 250 mls/hr IV .Q4H5M PRN PRN Reason: K LEVEL < 3.3mM/L Stop: 04/23/25 00:34 Potassium Cl/Dextrose/Lact Ringer's (Kcl 20 Meq/L In D5-Lr) 20 meq in 1,000 mls @ 250 mls/hr IV .Q4H PRN PRN Reason: K LEVEL 3.3 TO 5.3 mM/L Stop: 04/23/25 00:34 Potassium Chloride (Kcl Ivpb) 10 meq in 100 mls @ 50 mls/hr IV PRN PRN PRN Reason: K LEVEL 3.3 to 5.3 & BG > 200 Stop: 04/23/25 00:34 Potassium Phosphate (Pot Phos 15 Mmol In Ns 250 Ml) 15 mmol in 250 mls @ 62.5 mls/hr IV PRN PRN PRN Reason: Phosphate <= 1mg/dL Stop: 04/23/25 00:34 Sodium Phosphate 15 mmol/ (Sodium Chloride) 255 mls @ 62.5 mls/hr IV .Q4H5M PRN PRN Reason: Phosphate <= 1mg/dL and K> than 5.3 Stop: 04/23/25 00:34 Methocarbamol (Methocarbamol 500 Mg Tablet) 750 mg PO HS [facility] Stop: 04/23/25 20:59 Metoprolol Tartrate (Metoprolol Tartrate 25 Mg Tablet) 100 mg PO DAILY [facility] Stop: 04/23/25 08:59 Non-Formulary Medication (Fenofibrate) 160 mg PO QDAY [facility] Stop: 04/23/25 08:59 Non-Formulary Medication (Icosapent Ethyl [Vascepa]) 2 gm PO BID [facility] Stop: 04/23/25 08:59 Non-Formulary Medication (Medroxyprogesterone [Provera]) 10 mg PO QDAY [facility] Stop: 04/23/25 08:59 Non-Formulary Medication (Melatonin) 40 mg PO HS [facility] Stop: 04/23/25 20:59 Ondansetron HCl (Ondansetron Inj 2 Mg/Ml Inj 2 Ml) 4 mg IV Q6H PRN; Protocol PRN Reason: NAUSEA OR VOMITING Stop: 04/23/25 00:34 Pantoprazole Sodium (Pantoprazole Inj 40 Mg Vial) 40 mg IVP QDAY [facility] Stop: 04/23/25 08:59 Quetiapine Fumarate (Quetiapine Fumarate 100 Mg Tablet) 400 mg PO QPM [facility] Stop: 04/23/25 20:59 Sennosides (Senna Tablet) 1 tab PO QDAY [facility]; Protocol Stop: 04/23/25 08:59 Sodium Bicarbonate (Sodium Bicarb Inj 8.4% Syr 50 Ml Syringe) 50 ml IV PRN PRN PRN Reason: For ph <= to 7.0 Stop: 04/23/25 00:34 Topiramate (Topiramate 100 Mg Tablet) 100 mg PO BID [facility] Stop: 04/23/25 08:59 Discontinued Medications Metoclopramide HCl (Metoclopramide 5 Mg Tablet) 10 mg PO X1 ONE Stop: 03/23/25 21:53 Last Admin: 03/23/25 22:15 Dose: 10 mg Ondansetron HCl (Ondansetron Inj 2 Mg/Ml Inj 2 Ml) 4 mg IVP X1 ONE; Protocol Stop: 03/24/25 00:09 Last Admin: 03/24/25 00:21 Dose: 4 mg Assessment & Plan Plan Neurology Problem: Manic bipolar DDx: Diagnostic Test: Treatment Plan: Will resume the patient on Topamax 100 mg p.o. twice daily and Seroquel 400 mg p.o. every afternoon and gabapentin 600 mg p.o. Q4 hourly for peripheral neuropathy Treatment Review: Cardiovascular Problem: Sinus tachycardia currently with a history of arrhythmia in the past DDx: Diagnostic Test: Heart rate around 120s Treatment Plan: Will monitor the patient on telemetry monitors and with adequate IV fluid resuscitation hope that patient's tachycardia will improve. Will resume the patient's metoprolol Treatment Review: Respiratory Problem: Stable, NAD DDx: Diagnostic Test: Treatment Plan: Treatment Review: GI and F/E/N Problem: Hyperlipidemia DDx: Diagnostic Test: Treatment Plan: Will resume the patient on home hyperlipidemia medications Treatment Review: Renal Problem: Metabolic acidosis DDx: Likely secondary to diabetic ketoacidosis Diagnostic Test: Bicarb of 14, anion gap of 23. Lactic acid 2.0. Beta hydroxybutyrate 5.9 Treatment Plan: Will initiate the patient on DKA protocol with every 4 hours renal panel. Transition to subcutaneous insulin once anion gap is closed twice Treatment Review: Heme Problem: Stable, NAD DDx: Diagnostic Test: Treatment Plan: Treatment Review: Endo Problem: DKA DDx: In the setting of longstanding insulin-dependent type 2 diabetes mellitus Diagnostic Test: Bicarb 14.1, anion gap 23, beta hydroxybutyrate 5.9, glucose 361 Treatment Plan: Initiate the patient on insulin drip and IV fluid resuscitation. Will transition over to subcutaneous insulin once appropriate Treatment Review: ID Problem: Stable, NAD DDx: Diagnostic Test: Treatment Plan: Treatment Review: DVT prophylaxis: Lovenox 40 subcutaneous daily GI prophylaxis: Zofran for nausea Diet: N.p.o. except meds Friend: Not indicated Lines: Peripheral IVs Drips: Insulin drip Vent: Not indicated CODE STATUS: Full code Reason for hospitalization patient is admitted to the ICU for management of diabetic ketoacidosis Plan of care discussed with supervising attending Dr. Patty Rizzo M.D. PGY-3
[2025-03-24] MEDS: INSULIN REG 100 UNITS/100 ML 100 UNIT in PRE-MIXED 1 BAG 12.247 UNIT IV (01:25)
[2025-03-24] MEDS: GABAPENTIN 300 MG CAPSULE 600 MG PO ×5 (01:26→20:59)
[2025-03-24] MEDS: POTASSIUM CHL 10 mEq IVPB 10 MEQ/100 ML BAG 50 MEQ IV ×3 (01:38→05:47)
[2025-03-24] MEDS: RINGERS LACTATED 1000 ML 1,000 ML 250 ML IV (01:39)
[2025-03-24 02:31] LABS: Albumin, Serum 4.7 gm/dL (3.5-5.0); Anion Gap 20 (7-16); BUN/Creatinine Ratio 7 Ratio (12-20); Blood Urea Nitrogen 6 mg/dL (9-23); Calcium 8.5 mg/dL (8.3-10.6); Calcium (Corrected) 8.5 mg/dL (8.5-10.1); Chloride 103 mMol/L (98-107); Creatinine (Component) 0.9 mg/dL (0.6-1.3); Estimated Creatinine Clearance 105.9 mL/min (>60); Glucose 333 mg/dL (74-106); Osmolality,Calculated 284 (275-295); Phosphorous 2.1 mg/dL (2.4-5.1); Potassium 4.2 mMol/L (3.4-5.1); Sodium 137 mMol/L (136-145); eGFR > 60 See Note
[2025-03-24 02:37] LABS: Carbon Dioxide 13.6 mMol/L (20.0-31.0); Troponin I 0.082 ng/mL (0.0-0.045)
[2025-03-24] MEDS: DEXTROSE 5%-LACTATED RINGERS 1,000 ML 250 ML IV (04:25)
[2025-03-24 06:00] LABS: Basophils # (Auto) 0.1 Thou/mm3 (0.0-0.2); Basophils % (Auto) 1 % (0-2.5); Eosinophils # (Auto) 0.1 Thou/mm3 (0.0-0.5); Eosinophils % (Auto) 1 % (0-10); Hemoglobin 11.5 g/dL (12.0-16.0); Immature Granulocytes % (Auto) 1 % (0-0); Immature Granulocytes Auto 0.04 Thou/mm3 (0.00-0.00); Lymphocytes # (Auto) 2.7 Thou/mm3 (1.0-4.8); Lymphocytes % (Auto) 31 % (10-50); Mean Corpuscular HGB Conc 33.8 g/dl (31.0-37.0); Mean Corpuscular Hemoglobin 28.5 pg (25.0-35.0); Mean Corpuscular Volume 84 fL (80-100); Monocytes # (Auto) 0.9 Thou/mm3 (0.0-0.8); Monocytes % (Auto) 10 % (0-12); Neutrophils % (Auto) 57 % (37-80); Nucleated Red Blood Cell % 0 /100 WBC (0); Platelet Count 232 Thou/mm3 (140-440); RDW Standard Deviation 40.5 fL (36.4-46.3); Red Blood Count 4.04 Miln/mm3 (4.00-5.20); White Blood Count 8.8 Thou/mm3 (3.6-11.0)
[2025-03-24 06:12] LABS: Glucose Estimated Average 197 mg/dL (80-131); Hemoglobin A1C 8.5 % Hgb (4.8-6.0)
--- NOTE | 2025-03-24 06:18 | ECHO_ITS ---
Transthoracic Echo Report Ht (in): 68 Wt (lb): 254 Exam Location: Echo Lab Status: Inpatient Supervisory Investigative Specialist: Jolene Darling Indications: Procedure Performed: BP: 145 / 91 HR: 110 Technical Quality: Technically difficult study MEASUREMENTS (Male / Female) Normal Values 2D ECHO LA Volume Index 17.1 cm?/m? 16 - 28 cm?/m? M-MODE Aortic Root Diameter MM 3.1 cm LA Systolic Diameter MM 2.9 cm LA Ao Ratio MM 0.9 AV Cusp Separation MM 2.1 cm DOPPLER AV Peak Velocity 159.0 cm/s AV Peak Gradient 10.1 mmHg AV Mean Gradient 4.0 mmHg AV Velocity Time Integral 25.6 cm LVOT Peak Velocity 117.0 cm/s LVOT Peak Gradient 5.5 mmHg LVOT Velocity Time Integral 20.9 cm MV Area PHT 5.4 cm? Mitral E Point Velocity 65.0 cm/s Mitral A Point Velocity 96.0 cm/s Mitral E to A Ratio 0.7 LV E' Lateral Velocity 9.5 cm/s Mitral E to LV E' Lateral Ratio 6.9 LV E' Septal Velocity 6.9 cm/s Mitral E to LV E' Septal Ratio 9.5 PV Peak Velocity 89.6 cm/s PV Peak Gradient 3.2 mmHg FINDINGS Left Ventricle Normal left ventricular size and wall thickness. There is grade I diastolic dysfunction of the left ventricle (impaired relaxation pattern). The ejection fraction is visually estimated at 50-55%. Right Ventricle The right ventricle is normal in size and systolic function. Left Atrium The left atrium is normal by two-dimensional, color flow and Doppler imaging with no structural abnormalities, no thrombus formation present. Right Atrium The right atrium is normal by two-dimensional imaging, color flow and Doppler imaging with no structural abnormalities, no thrombus formation present. Atrial Septum The interatrial septum appears normal with no evidence of a shunt. Aorta The aorta is normal by two-dimensional, color flow and Doppler interrogation. Mitral Valve The mitral valve is normal by two-dimensional, color flow and Doppler interrogation. There is no significant mitral valve regurgitation, stenosis or prolapse. Aortic Valve The aortic valve is trileaflet and normal by two-dimensional, color flow and Doppler interrogation. There is no significant aortic valve regurgitation. Tricuspid Valve The tricuspid valve is normal by two-dimensional, color flow and Doppler interrogation. There is trace tricuspid valve regurgitation. Pulmonic Valve The pulmonic valve is not well visualized. There is no significant pulmonic valve regurgitation. Vessels Inferior vena cava not well visualized. Pericardium The pericardium is normal by two-dimensional imaging. There is no significant pericardial effusion. CONCLUSIONS Indication: Elevated Trop Normal LV size and wall thickness. Grade I diastolic dysfunction. Estimated at -50-5% RV is normal in size and systolic function. Trace TR. ICV not well visualized. Veronica Garza (Electronically Signed) Final Date: 29 Mar 2025 21:24
[2025-03-24 06:40] LABS: Alanine Aminotransferase 29 U/L (10-49); Albumin, Serum 4.4 gm/dL (3.5-5.0); Albumin/Globulin Ratio 1.7 (1.2-2.2); Alkaline Phosphatase 52 U/L (46-116); Anion Gap 16 (7-16); Aspartate Amino Transferase 16 U/L (0-34); BUN/Creatinine Ratio 8 Ratio (12-20); Bilirubin,Total 0.3 mg/dL (0.3-1.2); Blood Urea Nitrogen 6 mg/dL (9-23); Calcium 8.7 mg/dL (8.3-10.6); Calcium (Corrected) 8.7 mg/dL (8.5-10.1); Carbon Dioxide 19.2 mMol/L (20.0-31.0); Chloride 102 mMol/L (98-107); Creatinine (Component) 0.8 mg/dL (0.6-1.3); Estimated Creatinine Clearance 115.4 mL/min (>60); Globulin 2.6 gm/dL (2.3-3.5); Glucose 201 mg/dL (74-106); Magnesium 1.7 mg/dL (1.6-2.6); Osmolality,Calculated 277 (275-295); Phosphorous 1.3 mg/dL (2.4-5.1); Potassium 3.9 mMol/L (3.4-5.1); Sodium 137 mMol/L (136-145); eGFR > 60 See Note
--- NOTE | 2025-03-24 07:04 | PC.NURSE ---
patient unable to recall what medications she takes and how often. Patient stated she will have someone bring in the meds for us to do the rec.
[2025-03-24] MEDS: POT CHL ADDITIVE 20 MEQ in DEXTROSE 5%-LACTATED RINGERS 1,000 ML 250 MEQ IV (08:17)
[2025-03-24] MEDS: PANTOPRAZOLE INJ 40 MG VIAL IVP (08:17)
[2025-03-24] MEDS: ENOXAPARIN SOD INJ 40 MG/0.4 ML SYRINGE SC (08:17)
[2025-03-24] MEDS: Magnesium Sulfate 2 GM Ivpb 2 GM/50 ML BAG IV (08:17)
[2025-03-24 08:54] LABS: Lactate (Lactic Acid) 1.3 mMol/L (0.4-2.0)
[2025-03-24 09:20] LABS: Anion Gap 13 (7-16); BUN/Creatinine Ratio 6 Ratio (12-20); Blood Urea Nitrogen 5 mg/dL (9-23); Carbon Dioxide 19.3 mMol/L (20.0-31.0); Chloride 107 mMol/L (98-107); Creatinine (Component) 0.8 mg/dL (0.6-1.3); Estimated Creatinine Clearance 115.4 mL/min (>60); Glucose 199 mg/dL (74-106); Magnesium 1.8 mg/dL (1.6-2.6); Osmolality,Calculated 280 (275-295); Phosphorous 1.2 mg/dL (2.4-5.1); Sodium 139 mMol/L (136-145); eGFR > 60 See Note
--- NOTE | 2025-03-24 10:17 | PD.RESPRO ---
Documentation for date of: 03/24/25 Subjective Subjective Interval history: Ms. Denson is a 49-year-old female with past medical history of insulin-dependent diabetes mellitus since the age of 20, manic bipolar disease, history of arrhythmia on metoprolol, hyperlipidemia, insomnia who presented to [facility] with chief complaint of intractable nausea and vomiting. Patient states that on Friday she began to feel ill with significant amounts of vomiting of 5-6 episodes daily. She states that the vomitus is primarily been stomach acid and water. She denies any recent sick contacts, changes in diet, changes in water sources, increased stress or any environmental changes. She states that since Friday she has been unable to take any of her medications including her insulin. She states that she has never had a prior episode of DKA and is unsure of what her fingerstick blood glucose readings are at home. Patient states that she takes 80 units of long-acting insulin nightly and 50 units of Premeal insulin prior to her meals. She does not use a chronic glucose monitor and has primarily been using fingersticks to measure her blood sugar. She states for her psychiatric history she takes Seroquel 400 mg at night, Topamax 100 mg twice daily and Abilify once a month. 03/24/25 Patient seen and examined in the ICU today. There were no major overnight events and patient is doing okay this morning. Patient remains on the drip while her gap closes. She's gotten a total of 3L of fluids and she had adequate urine output overnight. She denies any nausea or vomiting. She was transitioned this afternoon to Full liquids with lantus of 70 based on insulin requirement. Patient tolerated diet well, she was stopped on the insulin drip and downgraded to the floors. We recommend stopping abilify which was the most recently started medication and can cause hyperglycemia and induced DKA. Exam Vital Signs Temp Pulse Resp BP Pulse Ox O2 Del Method 98.4 F 120 H 12 112/57 L 98 Room Air 03/24/25 04:00 03/24/25 07:11 03/24/25 07:11 03/24/25 07:00 03/24/25 07:11 03/24/25 01:22 Narrative Exam Constitutional: Well nourished and in no acute distress CVS: RRR, S1 and S2 present, no murmurs, rubs or gallops . RESP: CTAB, no SOB, no rales, rhonchi or wheezing. No respiratory Distress GI: large but soft with Normal BS, Nontender/Nondistended. MSK: Full range of motion, No trauma or deformities or masses. Skin: Warm to touch, Dry. No rashes or lesions. No hematomas Neuro: [employer] advisor II-XII grossly intact. Sensation grossly intact. Psych: (AAO) x3 . Appropriate mood and affect. Objective Labs 03/26/25 05:06 03/26/25 05:06 Labs: Laboratory Results - last 24 hr 03/23/25 03/23/25 03/24/25 22:12 23:39 01:31 WBC 11.4 H RBC 4.74 Hgb 13.7 Hct 41.9 MCV 88 MCH 28.9 MCHC 32.7 RDW Std Deviation 42.2 Plt Count 311 Neut % (Auto) 65 Lymph % (Auto) 29 [place] % (Auto) 5 Eos % (Auto) 0 Baso % (Auto) 1 Neut # (Auto) 7.4 Lymph # (Auto) 3.3 [place] # (Auto) 0.6 Eos # (Auto) 0.0 Baso # (Auto) 0.1 Immature Gran # (Auto) 0.06 H Absolute Nucleated RBC 0.00 Immature Gran % 1 H Nucleated RBC % 0 VBG pH 7.25 L VBG pCO2 34 L VBG pO2 27 VBG O2 Sat (Deborah) 45 L VBG Base Excess -11 L Sodium 135 L 137 Potassium 4.3 4.2 Chloride 98 103 Carbon Dioxide 14.1 L* 13.6 L* Anion Gap 23 H 20 H BUN 6 L 6 L Creatinine 1.1 0.9 Estim Creat Clear Calc 86.6 105.9 eGFR > 60 > 60 BUN/Creatinine Ratio 5 L 7 L Glucose [address] Glu mg/dL Hemoglobin A1c Calculated Osmolality 282 284 Lactic Acid 2.0 Calcium 9.4 8.5 Corrected Calcium 9.4 8.5 Phosphorus 2.1 L Magnesium Total Bilirubin 0.5 AST 18 ALT 40 Alkaline Phosphatase 67 Troponin I 0.088 H* 0.082 H* Total Protein 8.7 H Albumin 5.3 H 4.7 D Globulin 3.4 Albumin/Globulin Ratio 1.6 Lipase 43 Beta-Hydroxybutyrate/Acetoacetate 5.9 H Procalcitonin 0.09 Ur Collection Type Clean Catch Urine Color Lt-Yellow Urine Clarity Clear Urine pH 5.5 Ur Specific [place] 1.038 H Urine Protein 1+ A Urine Glucose (UA) 4+ A Urine Ketones 4+ A Urine Blood Negative Urine Nitrite Negative Urine Bilirubin Negative Urine Urobilinogen (Auto) Negative Ur Leukocyte Esterase Negative Urine RBC 0 Urine WBC 0 Ur Squamous Epith Cells 2 Urine Bacteria Rare Ur Culture Indicated? Not Indicated Urine HCG, Qual Negative Urine Opiates Screen Negative Urine Fentanyl Screen Negative Ur Barbiturates Screen Negative U Amphetamin/Meth Scrn Negative U Benzodiazepines Scrn Negative U Cocaine Metab Screen Negative U Marijuana (THC) Screen Negative 03/24/25 03/24/25 05:43 08:43 WBC 8.8 RBC 4.04 Hgb 11.5 L D Hct 34.0 L MCV 84 MCH 28.5 MCHC 33.8 RDW Std Deviation 40.5 Plt Count 232 D Neut % (Auto) 57 Lymph % (Auto) 31 [place] % (Auto) 10 Eos % (Auto) 1 Baso % (Auto) 1 Neut # (Auto) 5.0 Lymph # (Auto) 2.7 [place] # (Auto) 0.9 H Eos # (Auto) 0.1 Baso # (Auto) 0.1 Immature Gran # (Auto) 0.04 H Absolute Nucleated RBC 0.00 Immature Gran % 1 H Nucleated RBC % 0 VBG pH VBG pCO2 VBG pO2 VBG O2 Sat (Deborah) VBG Base Excess Sodium 137 139 Potassium 3.9 4.0 Chloride 102 107 Carbon Dioxide 19.2 L 19.3 L Anion Gap 16 13 BUN 6 L 5 L Creatinine 0.8 0.8 Estim Creat Clear Calc 115.4 115.4 eGFR > 60 > 60 BUN/Creatinine Ratio 8 L 6 L Glucose 201 H D [address] Glu mg/dL 197 H Hemoglobin A1c 8.5 H Calculated Osmolality 277 280 Lactic Acid 1.0 1.3 Calcium 8.7 8.0 L Corrected Calcium 8.7 8.0 L Phosphorus 1.3 L 1.2 L Magnesium 1.7 1.8 Total Bilirubin 0.3 AST 16 ALT 29 Alkaline Phosphatase 52 D Troponin I Total Protein 7.0 Albumin 4.4 4.0 Globulin 2.6 Albumin/Globulin Ratio 1.7 Lipase Beta-Hydroxybutyrate/Acetoacetate Procalcitonin Ur Collection Type Urine Color Urine Clarity Urine pH Ur Specific [place] Urine Protein Urine Glucose (UA) Urine Ketones Urine Blood Urine Nitrite Urine Bilirubin Urine Urobilinogen (Auto) Ur Leukocyte Esterase Urine RBC Urine WBC Ur Squamous Epith Cells Urine Bacteria Ur Culture Indicated? Urine HCG, Qual Urine Opiates Screen Urine Fentanyl Screen Ur Barbiturates Screen U Amphetamin/Meth Scrn U Benzodiazepines Scrn U Cocaine Metab Screen U Marijuana (THC) Screen ABG Interpretation ABG results: 03/23/25 22:12 VBG pH 7.25 L VBG pCO2 34 L VBG pO2 27 VBG Base Excess -11 L Quality Measures Quality Measures none Assessment & Plan Assessment Current Active Medications: Generic Name Dose Route Start Last Admin Trade Name Freq PRN Reason Stop Dose Admin Acetaminophen 650 mg 03/24/25 00:35 Acetaminophen 325 Mg Tablet PO 04/23/25 00:34 Q6H PRN Fever >101.5 Albuterol 1 puff 03/24/25 00:43 Albuterol Inh 8 Gm INH 04/23/25 00:42 QID PRN Bronchospasm Albuterol/Ipratropium 3 ml 03/24/25 08:40 Albuterol/Ipratropium (Duoneb) Rt Emily 3 Ml Nebu INH 04/23/25 08:39 Q6HRRT PRN SHORTNESS OF BREATH OR WHEEZE Aspirin 81 mg 03/24/25 21:00 Aspirin Ec 81 Mg Tabec PO 04/23/25 20:59 HS MICHAEL Atorvastatin Calcium 40 mg 03/24/25 21:00 Atorvastatin Calcium 20 Mg Tablet PO 04/23/25 20:59 HS MICHAEL Dextrose 25 ml 03/24/25 00:35 Dextrose 50%-Water Inj 50 Ml Syringe IV [id number] PRN Blood Sugar - Low Enoxaparin Sodium 40 mg 03/24/25 09:00 03/24/25 08:17 Enoxaparin Sod Inj 40 Mg/0.4 Ml Syringe SC 04/07/25 08:59 40 mg QDAY MICHAEL Administration Fenofibrate 145 mg 03/24/25 09:00 Fenofibrate 145 Mg Tablet (Non-Formulary) PO 04/23/25 08:59 QDAY MICHAEL Gabapentin 600 mg 03/24/25 02:00 03/24/25 05:48 Gabapentin 300 Mg Capsule PO 04/23/25 01:59 600 mg Q4HR MICHAEL Administration Potassium Chloride 10 meq in 100 mls @ 100 mls/hr 03/24/25 00:35 Kcl Ivpb IV 04/23/25 00:34 .Q1H PRN IF POTASSIUM LESS THAN 3.3 Magnesium Sulfate 2 gm in 50 mls @ 25 mls/hr 03/24/25 00:35 03/24/25 08:17 Magnesium Sulfate Ivpb IV 04/23/25 00:34 25 mls/hr .Q2H PRN Administration PER DKA PROTOCOL Insulin Human Regular 100 unit 100 mls @ 12.247 mls/hr 03/24/25 00:35 03/24/25 09:00 / IV Miscellaneous Supplies IV 04/23/25 00:34 0.05 unit/kg/hr .Q8H10M PRN 6.124 mls/hr PER PROTOCOL Titration Protocol 0.1 UNIT/KG/HR Dextrose/Lactated Ringer's 1,000 mls @ 250 mls/hr 03/24/25 00:35 03/24/25 08:00 D5-Lr IV 04/23/25 00:34 0 mls/hr .Q4H PRN Infusion PER PROTOCOL Lactated Ringer's 1,000 mls @ 250 mls/hr 03/24/25 00:35 03/24/25 04:27 Lactated Ringers IV 03/25/25 00:34 0 mls/hr .Q4H PRN Infusion PER PROTOCOL Potassium Chloride 20 meq/ 1,010 mls @ 250 mls/hr 03/24/25 00:35 Lactated Ringer's IV 04/23/25 00:34 .Q4H3M PRN K LEVEL 3.3 TO 5.3mM/L Potassium Chloride 40 meq/ 1,020 mls @ 250 mls/hr 03/24/25 00:35 Lactated Ringer's IV 04/23/25 00:34 .Q4H5M PRN K LEVEL < 3.3 mM/L Potassium Chloride 40 meq/ 1,020 mls @ 250 mls/hr 03/24/25 00:35 Dextrose/Lactated Ringer's IV 04/23/25 00:34 .Q4H5M PRN K LEVEL < 3.3mM/L Potassium Chloride 10 meq in 100 mls @ 50 mls/hr 03/24/25 00:35 03/24/25 05:47 Kcl Ivpb IV 04/23/25 00:34 50 mls/hr PRN PRN Administration K LEVEL 3.3 to 5.3 & BG > 200 Potassium Phosphate 15 mmol in 250 mls @ 62.5 mls/hr 03/24/25 00:35 Pot Phos 15 Mmol In Ns 250 Ml IV 04/23/25 00:34 PRN PRN Phosphate <= 1mg/dL Sodium Phosphate 15 mmol/ 255 mls @ 62.5 mls/hr 03/24/25 00:35 Sodium Chloride IV 04/23/25 00:34 .Q4H5M PRN Phosphate <= 1mg/dL and K> than 5.3 Potassium Chloride 20 meq/ 1,010 mls @ 250 mls/hr 03/24/25 07:49 03/24/25 08:17 Dextrose/Lactated Ringer's IV 04/23/25 07:48 250 mls/hr .Q4H3M PRN Administration K LEVEL 3.3 TO 5.3 mM/L Melatonin 9 mg 03/24/25 21:00 Melatonin 3 Mg Tablet PO 04/23/25 20:59 HS MICHAEL Methocarbamol 750 mg 03/24/25 21:00 Methocarbamol 500 Mg Tablet PO 04/23/25 20:59 HS MICHAEL Metoprolol Tartrate 100 mg 03/24/25 09:00 Metoprolol Tartrate 25 Mg Tablet PO 04/23/25 08:59 DAILY MICHAEL Non-Formulary Medication 2 gm 03/24/25 09:00 Icosapent Ethyl [Vascepa] PO 04/23/25 08:59 BID MICHAEL Ondansetron HCl 4 mg 03/24/25 00:35 Ondansetron Inj 2 Mg/Ml Inj 2 Ml IV 04/23/25 00:34 Q6H PRN NAUSEA OR VOMITING Protocol Pantoprazole Sodium 40 mg 03/24/25 09:00 03/24/25 08:17 Pantoprazole Inj 40 Mg Vial IVP 04/23/25 08:59 40 mg QDAY MICHAEL Administration Quetiapine Fumarate 400 mg 03/24/25 21:00 Quetiapine Fumarate 100 Mg Tablet PO 04/23/25 20:59 QPM MICHAEL Sennosides 1 tab 03/24/25 09:00 Senna Tablet PO 04/23/25 08:59 QDAY MICHAEL Protocol Sennosides 1 tab 03/24/25 10:00 Senna/Docusate Sod 1 Tab Tablet PO 04/23/25 09:59 QDAY PRN CONSTIPATION Protocol Sodium Bicarbonate 50 ml 03/24/25 00:35 Sodium Bicarb Inj 8.4% Syr 50 Ml Syringe IV 04/23/25 00:34 PRN PRN For ph <= to 7.0 Topiramate 100 mg 03/24/25 09:00 Topiramate 100 Mg Tablet PO 04/23/25 08:59 BID MICHAEL Plan 49-year-old female with past medical history of insulin-dependent diabetes mellitus since the age of 20, manic bipolar disease, history of arrhythmia on metoprolol, hyperlipidemia, insomnia admitted for DKA Neurology Problem: Manic bipolar DDx: Diagnostic Test: Treatment Plan: Will resume the patient on Topamax 100 mg p.o. twice daily and Seroquel 400 mg p.o. every afternoon and gabapentin 600 mg p.o. Q6 hourly for peripheral neuropathy Treatment Review: Hold abilify for now as it can increase the risk of DKA Cardiovascular Problem: Sinus tachycardia currently with a history of arrhythmia in the past DDx: Diagnostic Test: Heart rate around 120s Treatment Plan: Will monitor the patient on telemetry monitors and with adequate IV fluid resuscitation hope that patient's tachycardia will improve. Will resume the patient's metoprolol Treatment Review: Respiratory Problem: Stable, NAD DDx: Diagnostic Test: Treatment Plan: Treatment Review: GI and F/E/N Problem: Hyperlipidemia DDx: Diagnostic Test: Treatment Plan: Will resume the patient on home hyperlipidemia medications Treatment Review: Renal Problem: Metabolic acidosis - resolving DDx: Likely secondary to diabetic ketoacidosis Diagnostic Test: Bicarb of 14, anion gap of 23. Lactic acid 2.0. Beta hydroxybutyrate 5.9 Treatment Plan: Will initiate the patient on DKA protocol with every 4 hours renal panel. Transition to subcutaneous insulin once anion gap is closed twice Treatment Review: Heme Problem: Stable, NAD DDx: Diagnostic Test: Treatment Plan: Treatment Review: Endo Problem: DKA - resolved DDx: In the setting of longstanding insulin-dependent type 2 diabetes mellitus Diagnostic Test: Bicarb 14.1, anion gap 23, beta hydroxybutyrate 5.9, glucose 361 Treatment Plan: GAP closed twice. Patient received 70 of lantus and food. Patient tolerated well and will be advanced as tolerated Treatment Review: ID Problem: Stable, NAD DDx: Diagnostic Test: Treatment Plan: Treatment Review: DVT prophylaxis: Lovenox 40 subcutaneous daily GI prophylaxis: Zofran for nausea Diet: full liqui carb consistent low diet Friend: Not indicated Lines: Peripheral IVs Drips: none Vent: Not indicated CODE STATUS: Full code Reason for hospitalization patient is admitted to the ICU for management of diabetic ketoacidosis which has resolved and has been dowgraded to med tele Plan of care discussed with supervising attending Dr. Aristeo Cagle MD PGY-3 Attending Provider Attestation/Addendum pt seen and examined with resident, agree with above. In brief this is a 49yo F admitted to the ICU for DKA. She has been feeling poorly prior to arrival with n/v and had not been taking her insulin. She was started on DKA protocol and insulin gtt. Her AG has been improving. Physical exam is wnl with clear lungs and HRRR, obese. States she feels much improved from arrival. Once her AG has closed will transition to subq insulin and start PO. labs, imaging, records reviewed d/w ICU team ~25min required for eval, exam , review, intervention, discussion and formulation of POC for this pt
[2025-03-24] MEDS: SENNA TABLET 1 TAB PO (10:30)
[2025-03-24] MEDS: INSULIN REG 100 UNITS/100 ML 100 UNIT in PRE-MIXED 1 BAG 6.124 UNIT IV (10:33)
--- NOTE | 2025-03-24 11:38 | PC.PT ---
Patient was approached at 1130. Patient states she was able to ambulate to use the restroom. Patient also lives in a studio apartment and her bathroom is a few steps from her bed. She utilized [facility] for community distance because of her back problem. Her daughter is her [facility] worker. Patient agrees that she doesn't need PT as of this time. Will cancel PT evaluation.
--- NOTE | 2025-03-24 11:54 | PC.SS ---
Initial assessment: this is 49 year old female admitted to ICU for DKA. Patient was able to confirm demographic information. Patient informs she resides at home alone. Per patient, her daughter Ana is her caregiver with [employer]. Patient informs her daughter Ana helps her with cooking, cleaning and showering. Patient identified her daughter Ana as her emergency contact. Patient informs she has a walker and electric wheelchair at home to assist with ambulation/transferring when tired. Patient PCP provider is Osvaldo Musa. Patient to return home upon discharge, informs her daughter Ana to transport home. No needs identified at this time. D/c plan: Home Next of kin: daughterAna
[2025-03-24 13:41] LABS: Lactate (Lactic Acid) 1.3 mMol/L (0.4-2.0)
[2025-03-24 14:12] LABS: Anion Gap 10 (7-16); BUN/Creatinine Ratio 6 Ratio (12-20); Blood Urea Nitrogen < 5 mg/dL (9-23); Calcium 8.1 mg/dL (8.3-10.6); Calcium (Corrected) 8.1 mg/dL (8.5-10.1); Carbon Dioxide 23.8 mMol/L (20.0-31.0); Chloride 107 mMol/L (98-107); Creatinine (Component) 0.8 mg/dL (0.6-1.3); Estimated Creatinine Clearance 113.6 mL/min (>60); Glucose 197 mg/dL (74-106); Magnesium 2.1 mg/dL (1.6-2.6); Osmolality,Calculated 283 (275-295); Phosphorous 1.2 mg/dL (2.4-5.1); Sodium 141 mMol/L (136-145); eGFR > 60 See Note
[2025-03-24] MEDS: INSULIN GLARGINE (Lantus) 5 UNIT/0.05 ML (PER 5 UNITS) 70 UNIT SC (14:33)
--- NOTE | 2025-03-24 16:24 | ESPR_ITS ---
<Statement entered by Marie Jennings MD - 04/03/25 07:23> I reviewed above note and agree with findings and plans. I have also personally examined the patient with medicine team and went over assessment and plan with medical team including senior international tax manager and resident physician. Documentation for date of: 03/24/25 Subjective Subjective Interval history: 03/24/2025: ICU downgrade for 49-year-old female with past medical history of insulin-dependent type 2 diabetes, manic bipolar, history of arrhythmia on metoprolol, hyperlipidemia, insomnia presented with intractable nausea and vomiting and found to be in diabetic ketoacidosis; was upgraded to ICU for insulin drip and IV fluid resuscitation. Patient's anion gap has closed x 3 and she is now on full liquid diet. Patient's insulin regimen has been updated and we will continue current management. Exam Vital Signs Temp Pulse Resp BP Pulse Ox O2 Del Method 99.0 F 112 H 12 136/64 H 97 Room Air 03/24/25 12:00 03/24/25 14:00 03/24/25 14:00 03/24/25 14:03/24/25 14:03/24/25 12:00 Narrative Exam Constitutional: Well nourished and in no acute distress CVS: RRR, S1 and S2 present, no murmurs, rubs or gallops . RESP: CTAB, no SOB, no rales, rhonchi or wheezing. No respiratory Distress GI: large but soft with Normal BS, Nontender/Nondistended. MSK: Full range of motion, No trauma or deformities or masses. Skin: Warm to touch, Dry. No rashes or lesions. No hematomas Neuro: survey operations director II-XII grossly intact. Sensation grossly intact. Psych: (AAO) x3 . Appropriate mood and affect. Objective Labs 03/24/25 05:43 03/24/25 13:20 Labs: Laboratory Results - last 24 hr 03/23/25 03/23/25 03/24/25 22:12 23:39 01:31 WBC 11.4 H RBC 4.74 Hgb 13.7 Hct 41.9 MCV 88 MCH 28.9 MCHC 32.7 RDW Std Deviation 42.2 Plt Count 311 Neut % (Auto) 65 Lymph % (Auto) 29 [place] % (Auto) 5 Eos % (Auto) 0 Baso % (Auto) 1 Neut # (Auto) 7.4 Lymph # (Auto) 3.3 [place] # (Auto) 0.6 Eos # (Auto) 0.0 Baso # (Auto) 0.1 Immature Gran # (Auto) 0.06 H Absolute Nucleated RBC 0.00 Immature Gran % 1 H Nucleated RBC % 0 VBG pH 7.25 L VBG pCO2 34 L VBG pO2 27 VBG O2 Sat (Deborah) 45 L VBG Base Excess -11 L Sodium 135 L 137 Potassium 4.3 4.2 Chloride 98 103 Carbon Dioxide 14.1 L* 13.6 L* Anion Gap 23 H 20 H BUN 6 L 6 L Creatinine 1.1 0.9 Estim Creat Clear Calc 86.6 105.9 eGFR > 60 > 60 BUN/Creatinine Ratio 5 L 7 L Glucose [address] Glu mg/dL Hemoglobin A1c Calculated Osmolality 282 284 Lactic Acid 2.0 Calcium 9.4 8.5 Corrected Calcium 9.4 8.5 Phosphorus 2.1 L Magnesium Total Bilirubin 0.5 AST 18 ALT 40 Alkaline Phosphatase 67 Troponin I 0.088 H* 0.082 H* Total Protein 8.7 H Albumin 5.3 H 4.7 D Globulin 3.4 Albumin/Globulin Ratio 1.6 Lipase 43 Beta-Hydroxybutyrate/Acetoacetate 5.9 H Procalcitonin 0.09 Ur Collection Type Clean Catch Urine Color Lt-Yellow Urine Clarity Clear Urine pH 5.5 Ur Specific [place] 1.038 H Urine Protein 1+ A Urine Glucose (UA) 4+ A Urine Ketones 4+ A Urine Blood Negative Urine Nitrite Negative Urine Bilirubin Negative Urine Urobilinogen (Auto) Negative Ur Leukocyte Esterase Negative Urine RBC 0 Urine WBC 0 Ur Squamous Epith Cells 2 Urine Bacteria Rare Ur Culture Indicated? Not Indicated Urine HCG, Qual Negative Urine Opiates Screen Negative Urine Fentanyl Screen Negative Ur Barbiturates Screen Negative U Amphetamin/Meth Scrn Negative U Benzodiazepines Scrn Negative U Cocaine Metab Screen Negative U Marijuana (THC) Screen Negative 03/24/25 03/24/25 03/24/25 05:43 08:43 13:20 WBC 8.8 RBC 4.04 Hgb 11.5 L D Hct 34.0 L MCV 84 MCH 28.5 MCHC 33.8 RDW Std Deviation 40.5 Plt Count 232 D Neut % (Auto) 57 Lymph % (Auto) 31 [place] % (Auto) 10 Eos % (Auto) 1 Baso % (Auto) 1 Neut # (Auto) 5.0 Lymph # (Auto) 2.7 [place] # (Auto) 0.9 H Eos # (Auto) 0.1 Baso # (Auto) 0.1 Immature Gran # (Auto) 0.04 H Absolute Nucleated RBC 0.00 Immature Gran % 1 H Nucleated RBC % 0 VBG pH VBG pCO2 VBG pO2 VBG O2 Sat (Deborah) VBG Base Excess Sodium 137 139 141 Potassium 3.9 4.0 4.0 Chloride 102 107 107 Carbon Dioxide 19.2 L 19.3 L 23.8 Anion Gap 16 13 10 BUN 6 L 5 L < 5 L Creatinine 0.8 0.8 0.8 Estim Creat Clear Calc 115.4 115.4 113.6 eGFR > 60 > 60 > 60 BUN/Creatinine Ratio 8 L 6 L 6 L Glucose 201 H D [address] Glu mg/dL 197 H Hemoglobin A1c 8.5 H Calculated Osmolality 277 280 283 Lactic Acid 1.0 1.3 1.3 Calcium 8.7 8.0 L 8.1 L Corrected Calcium 8.7 8.0 L 8.1 L Phosphorus 1.3 L 1.2 L 1.2 L Magnesium 1.7 1.8 2.1 Total Bilirubin 0.3 AST 16 ALT 29 Alkaline Phosphatase 52 D Troponin I Total Protein 7.0 Albumin 4.4 4.0 4.0 Globulin 2.6 Albumin/Globulin Ratio 1.7 Lipase Beta-Hydroxybutyrate/Acetoacetate Procalcitonin Ur Collection Type Urine Color Urine Clarity Urine pH Ur Specific [place] Urine Protein Urine Glucose (UA) Urine Ketones Urine Blood Urine Nitrite Urine Bilirubin Urine Urobilinogen (Auto) Ur Leukocyte Esterase Urine RBC Urine WBC Ur Squamous Epith Cells Urine Bacteria Ur Culture Indicated? Urine HCG, Qual Urine Opiates Screen Urine Fentanyl Screen Ur Barbiturates Screen U Amphetamin/Meth Scrn U Benzodiazepines Scrn U Cocaine Metab Screen U Marijuana (THC) Screen ABG Interpretation ABG results: 03/23/25 22:12 VBG pH 7.25 L VBG pCO2 34 L VBG pO2 27 VBG Base Excess -11 L Quality Measures Quality Measures none Assessment & Plan Assessment Current Active Medications: Generic Name Dose Route Start Last Admin Trade Name Freq PRN Reason Stop Dose Admin Acetaminophen 650 mg 03/24/25 00:35 Acetaminophen 325 Mg Tablet PO 04/23/25 00:34 Q6H PRN Fever >101.5 Albuterol 1 puff 03/24/25 00:43 Albuterol Inh 8 Gm INH 04/23/25 00:42 QID PRN Bronchospasm Albuterol/Ipratropium 3 ml 03/24/25 08:40 Albuterol/Ipratropium (Duoneb) Rt Emily 3 Ml Nebu INH 04/23/25 08:39 Q6HRRT PRN SHORTNESS OF BREATH OR WHEEZE Aspirin 81 mg 03/24/25 21:00 Aspirin Ec 81 Mg Tabec PO 04/23/25 20:59 HS MICHAEL Atorvastatin Calcium 40 mg 03/24/25 21:00 Atorvastatin Calcium 20 Mg Tablet PO 04/23/25 20:59 HS MICHAEL Dextrose 25 ml 03/24/25 00:35 Dextrose 50%-Water Inj 50 Ml Syringe IV [id number] PRN Blood Sugar - Low Dextrose 25 ml 03/24/25 14:17 Dextrose 50%-Water Inj 50 Ml Syringe IV 04/23/25 14:16 Q15MIN PRN BG 50-70 responsive npo pt Dextrose 50 ml 03/24/25 14:17 Dextrose 50%-Water Inj 50 Ml Syringe IV 04/23/25 14:16 Q15MIN PRN BG <50 OR BG <70 & pt unresponsive Enoxaparin Sodium 40 mg 03/24/25 09:00 03/24/25 08:17 Enoxaparin Sod Inj 40 Mg/0.4 Ml Syringe SC 04/07/25 08:59 40 mg QDAY MICHAEL Administration Fenofibrate 145 mg 03/24/25 09:00 03/24/25 10:56 Fenofibrate 145 Mg Tablet (Non-Formulary) PO 04/23/25 08:59 Not Given QDAY MICHAEL Gabapentin 600 mg 03/24/25 02:00 03/24/25 16:17 Gabapentin 300 Mg Capsule PO 04/23/25 01:59 Not Given Q4HR MICHAEL Glucagon 1 mg 03/24/25 14:17 Glucagon Inj 1 Mg Vial IM Q15MIN PRN BG <70, and no IV access Potassium Chloride 10 meq in 100 mls @ 100 mls/hr 03/24/25 00:35 Kcl Ivpb IV 04/23/25 00:34 .Q1H PRN IF POTASSIUM LESS THAN 3.3 Magnesium Sulfate 2 gm in 50 mls @ 25 mls/hr 03/24/25 00:35 03/24/25 08:17 Magnesium Sulfate Ivpb IV 04/23/25 00:34 25 mls/hr .Q2H PRN Administration PER DKA PROTOCOL Insulin Human Regular 100 unit 100 mls @ 12.247 mls/hr 03/24/25 00:35 03/24/25 14:00 / IV Miscellaneous Supplies IV 04/23/25 00:34 0.05 unit/kg/hr .Q8H10M PRN 6.124 mls/hr PER PROTOCOL Titration Protocol 0.1 UNIT/KG/HR Dextrose/Lactated Ringer's 1,000 mls @ 250 mls/hr 03/24/25 00:35 03/24/25 08:00 D5-Lr IV 04/23/25 00:34 0 mls/hr .Q4H PRN Infusion PER PROTOCOL Lactated Ringer's 1,000 mls @ 250 mls/hr 03/24/25 00:35 03/24/25 04:27 Lactated Ringers IV 03/25/25 00:34 0 mls/hr .Q4H PRN Infusion PER PROTOCOL Potassium Chloride 20 meq/ 1,010 mls @ 250 mls/hr 03/24/25 00:35 Lactated Ringer's IV 04/23/25 00:34 .Q4H3M PRN K LEVEL 3.3 TO 5.3mM/L Potassium Chloride 40 meq/ 1,020 mls @ 250 mls/hr 03/24/25 00:35 Lactated Ringer's IV 04/23/25 00:34 .Q4H5M PRN K LEVEL < 3.3 mM/L Potassium Chloride 40 meq/ 1,020 mls @ 250 mls/hr 03/24/25 00:35 Dextrose/Lactated Ringer's IV 04/23/25 00:34 .Q4H5M PRN K LEVEL < 3.3mM/L Potassium Chloride 10 meq in 100 mls @ 50 mls/hr 03/24/25 00:35 03/24/25 05:47 Kcl Ivpb IV 04/23/25 00:34 50 mls/hr PRN PRN Administration K LEVEL 3.3 to 5.3 & BG > 200 Potassium Phosphate 15 mmol in 250 mls @ 62.5 mls/hr 03/24/25 00:35 Pot Phos 15 Mmol In Ns 250 Ml IV 04/23/25 00:34 PRN PRN Phosphate <= 1mg/dL Sodium Phosphate 15 mmol/ 255 mls @ 62.5 mls/hr 03/24/25 00:35 Sodium Chloride IV 04/23/25 00:34 .Q4H5M PRN Phosphate <= 1mg/dL and K> than 5.3 Potassium Chloride 20 meq/ 1,010 mls @ 250 mls/hr 03/24/25 07:49 03/24/25 08:17 Dextrose/Lactated Ringer's IV 04/23/25 07:48 250 mls/hr .Q4H3M PRN Administration K LEVEL 3.3 TO 5.3 mM/L Insulin Human Lispro 0 unit 03/24/25 17:00 Insulin Lispro (Admelog) 1 Unit/0.01 Ml Unit SC 04/23/25 16:59 AC COUNTS INCLUDE 234 BEDS AT THE [facility] Protocol Melatonin 9 mg 03/24/25 21:00 Melatonin 3 Mg Tablet PO 04/23/25 20:59 HS COUNTS INCLUDE 234 BEDS AT THE [facility] Methocarbamol 750 mg 03/24/25 21:00 Methocarbamol 500 Mg Tablet PO 04/23/25 20:59 HS COUNTS INCLUDE 234 BEDS AT THE [facility] Metoprolol Tartrate 100 mg 03/24/25 09:00 03/24/25 10:57 Metoprolol Tartrate 25 Mg Tablet PO 04/23/25 08:59 Not Given DAILY COUNTS INCLUDE 234 BEDS AT THE [facility] Non-Formulary Medication 2 gm 03/24/25 09:00 03/24/25 10:56 Icosapent Ethyl [Vascepa] PO 04/23/25 08:59 Not Given BID COUNTS INCLUDE 234 BEDS AT THE [facility] Ondansetron HCl 4 mg 03/24/25 00:35 Ondansetron Inj 2 Mg/Ml Inj 2 Ml IV 04/23/25 00:34 Q6H PRN NAUSEA OR VOMITING Protocol Pantoprazole Sodium 40 mg 03/24/25 09:00 03/24/25 08:17 Pantoprazole Inj 40 Mg Vial IVP 04/23/25 08:59 40 mg QDAY MICHAEL Administration Quetiapine Fumarate 400 mg 03/24/25 21:00 Quetiapine Fumarate 100 Mg Tablet PO 04/23/25 20:59 QPM MICHAEL Sennosides 1 tab 03/24/25 09:00 03/24/25 10:30 Senna Tablet PO 04/23/25 08:59 1 tab QDAY MICHAEL Administration Protocol Sennosides 1 tab 03/24/25 10:00 Senna/Docusate Sod 1 Tab Tablet PO 04/23/25 09:59 QDAY PRN CONSTIPATION Protocol Sodium Bicarbonate 50 ml 03/24/25 00:35 Sodium Bicarb Inj 8.4% Syr 50 Ml Syringe IV 04/23/25 00:34 PRN PRN For ph <= to 7.0 Topiramate 100 mg 03/24/25 09:00 03/24/25 10:57 Topiramate 100 Mg Tablet PO 04/23/25 08:59 Not Given BID MICHAEL Plan 49-year-old female with past medical history of insulin-dependent diabetes mellitus since the age of 20, manic bipolar disorder, history of arrhythmia on metoprolol, hyperlipidemia, insomnia who presented to [facility] with chief complaint of intractable nausea and vomiting found to be in DKA; being downgraded from ICU off insulin gtt. #DKA - resolved #Insulin-dependent Type 2 Diabetes Mellitus #Metabolic acidosis - resolving #Electrolyte Abnormalities In the setting of longstanding insulin-dependent type 2 diabetes mellitus Metabolic acidosis likely secondary to diabetic ketoacidosis Presenting with bicarb 14.1, anion gap 23, beta hydroxybutyrate 5.9, glucose 361 AG closed x3. Patient received 70 of lantus and tolerating full liquid diet Plan: Continue Lantus 70u HS Lispro 20u premeal SSI Diabetic Education; patient could benefit from CGM Replete lytes as needed #Sinus tachycardia currently with a history of arrhythmia Heart rate around 120s On home metoprolol succinate 100mg po daily Plan: Tele monitoring Will start metoprolol succinate 50mg as patient's BP is on softer side (systolic 120s) #Normocytic anemia Differentials include: Iron deficiency anemia, anemia of chronic disease, vitamin deficiency, less likely to be myelosuppression or hematologic malignancy Plan: Follow-up on morning iron panel, ferritin and reticulocyte count #Manic bipolar disorder On Topamax 100 mg p.o. twice daily and Seroquel 400 mg p.o. every afternoon and gabapentin 600 mg p.o. Q6 hourly for peripheral neuropathy Plan: Continue home medications #Hyperlipidemia On home atorvastatin 40mg po qday Plan: Continue home medication Hospital Management: DVT prophylaxis: Lovenox 40 subcutaneous daily GI prophylaxis: Not needed Diet: full liqui carb consistent low diet Lines: Peripheral IVs Dispo: Downgraded from ICU, Insulin regimen; anticipate DC within the next 24-48 hours CODE STATUS: Full code Patient seen and assessed with attending Dr. Michaela Renteria, PGY-1
--- NOTE | 2025-03-24 17:37 | PC.NURSE ---
per md phelps do not give metorpolol due to blood pressure will adjust dosage and put new order
[2025-03-24] MEDS: INSULIN LISPRO (AdmeLOG) 1 UNIT/0.01 ML UNIT SC (17:54)
[2025-03-24] MEDS: METOPROLOL SUCCINATE XL 25 MG TABCR 50 MG PO (17:57)
--- NOTE | 2025-03-24 18:24 | EKG_ITS ---
[facility] Test Date: 2025-03-24 Pat Name: ARNAUD SILVERIO Department: Room: S373A Gender: Female Proposal Director: [id number] : 1975 Requested By: Beto Renteria Order Number: [id number] Reading MD: Beto Renteria Measurements Intervals [place] Rate: 98 P: -4 NE: 154 QRS: -11 QRSD: 96 T: 4 QT: 374 QTc: 478 Interpretive Statements SINUS RHYTHM LOW QRS VOLTAGE IN PRECORDIAL LEADS ANTERIOR MYOCARDIAL INFARCTION , PROBABLY OLD Compared to ECG 03/23/2025 21:54:19 Low QRS voltage now present Sinus tachycardia no longer present Myocardial infarct finding still present /store/S0/[id number]/[id number].pdf
--- NOTE | 2025-03-24 18:26 | PC.NURSE ---
notified dr. sweet plant tech notified me patients heart rate 140.
[2025-03-24] MEDS: POT PHOS 15 mMol in NS 250 ML 15 MMOL/250 ML BAG 62.5 MMOL IV ×2 (18:43→23:03)
[2025-03-24] MEDS: MELATONIN 3 MG TABLET 9 MG PO (21:00)
[2025-03-24] MEDS: ATORVASTATIN CALCIUM 20 MG TABLET 40 MG PO (21:00)
[2025-03-24] MEDS: ASPIRIN EC 81 MG TABEC PO (21:00)
[2025-03-24] MEDS: QUEtiapine FUMARATE 100 MG TABLET 400 MG PO (21:01)
[2025-03-24] MEDS: methocarbamoL 500 MG TABLET 750 MG PO (21:02)
[2025-03-24] MEDS: TOPIRAMATE 100 MG TABLET PO (21:08)
[2025-03-24 21:17] LABS: Phosphorous 2.5 mg/dL (2.4-5.1)
[2025-03-25] VITALS (12 sets, daily range): BP systolic 91–135; BP diastolic 56–72; PULSE 80–104; RESP 15–20; TEMP 36.2–36.8; O2SAT 92–96
[2025-03-25] MEDS: GABAPENTIN 300 MG CAPSULE 600 MG PO ×6 (02:18→21:06)
[2025-03-25 06:03] LABS: Basophils # (Auto) 0.1 Thou/mm3 (0.0-0.2); Basophils % (Auto) 2 % (0-2.5); Eosinophils # (Auto) 0.2 Thou/mm3 (0.0-0.5); Eosinophils % (Auto) 4 % (0-10); Hematocrit 30.3 % (36.0-46.0); Hemoglobin 10.3 g/dL (12.0-16.0); Immature Granulocytes % (Auto) 0 % (0-0); Immature Granulocytes Auto 0.01 Thou/mm3 (0.00-0.00); Immature Reticulocyte Fraction 27.1 % (3.0-15.9); Lymphocytes # (Auto) 1.5 Thou/mm3 (1.0-4.8); Lymphocytes % (Auto) 39 % (10-50); Mean Corpuscular Hemoglobin 29.8 pg (25.0-35.0); Mean Corpuscular Volume 88 fL (80-100); Monocytes # (Auto) 0.3 Thou/mm3 (0.0-0.8); Monocytes % (Auto) 7 % (0-12); Neutrophils # (Auto) 1.9 Thou/mm3 (1.8-7.7); Neutrophils % (Auto) 48 % (37-80); Nucleated Red Blood Cell % 0 /100 WBC (0); Platelet Count 163 Thou/mm3 (140-440); RDW Standard Deviation 43.1 fL (36.4-46.3); Red Blood Count 3.46 Miln/mm3 (4.00-5.20); Reticulocyte % (Auto) 1.8 % (0.5-1.5); Reticulocyte Absolute Auto 62.6 Biln/L (25.0-75.0); Reticulocyte Hgb Content 33.5 pg (28.0-35.0)
[2025-03-25 06:22] LABS: Ferritin 18 ng/mL (7.3-270.7); Iron 21 mcg/dL (50-170); Percent Iron Saturation 5 % (20-55); Total Iron Binding Capacity 372 mcg/dL (250-425); Unsaturated Iron Binding 351 (225-295)
[2025-03-25 06:31] LABS: Alanine Aminotransferase 30 U/L (10-49); Albumin, Serum 3.7 gm/dL (3.5-5.0); Albumin/Globulin Ratio 1.6 (1.2-2.2); Alkaline Phosphatase 50 U/L (46-116); Anion Gap 11 (7-16); Aspartate Amino Transferase 19 U/L (0-34); BUN/Creatinine Ratio 6 Ratio (12-20); Bilirubin,Total 0.2 mg/dL (0.3-1.2); Blood Urea Nitrogen < 5 mg/dL (9-23); Calcium 8.4 mg/dL (8.3-10.6); Calcium (Corrected) 8.6 mg/dL (8.5-10.1); Carbon Dioxide 23.3 mMol/L (20.0-31.0); Chloride 106 mMol/L (98-107); Creatinine (Component) 0.8 mg/dL (0.6-1.3); Estimated Creatinine Clearance 113.6 mL/min (>60); Globulin 2.3 gm/dL (2.3-3.5); Glucose 300 mg/dL (74-106); Osmolality,Calculated 287 (275-295); Phosphorous 3.6 mg/dL (2.4-5.1); Potassium 4.4 mMol/L (3.4-5.1); Sodium 140 mMol/L (136-145); eGFR > 60 See Note
[2025-03-25] MEDS: INSULIN LISPRO (AdmeLOG) 1 UNIT/0.01 ML UNIT SC ×2 (07:58→12:02)
[2025-03-25] MEDS: ENOXAPARIN SOD INJ 40 MG/0.4 ML SYRINGE SC (09:22)
[2025-03-25] MEDS: METOPROLOL SUCCINATE XL 25 MG TABCR 50 MG PO (09:23)
[2025-03-25] MEDS: TOPIRAMATE 100 MG TABLET PO ×2 (09:24→20:18)
[2025-03-25] MEDS: FENOFIBRATE 145 MG TABLET (NON-FORMULARY) PO (09:45)
[2025-03-25] MEDS: FERROUS SULF 325 MG TABLET PO (11:10)
--- NOTE | 2025-03-25 11:47 | ESPR_ITS ---
Documentation for date of: 03/25/25 Subjective Subjective Interval history: 03/25/2025: No acute overnight events to report. Patient seen and examined in hospital bed reporting persistent fatigue but has been able to tolerate diet. Patient's bedside glucose readings have been very high from 250s to 300s. Increase patient's insulin glargine from 7 units to 80 units, will continue insulin lispro 20 units Premeal and keep sliding scale. Patient also has iron deficiency anemia; will restart iron replacement. Will continue monitor and expect discharge within the next 24 to 48 hours. Exam Vital Signs Temp Pulse Resp BP Pulse Ox O2 Del Method 98.1 F 104 H 16 115/65 96 Room Air 03/25/25 07:40 03/25/25 09:23 03/25/25 07:40 03/25/25 09:23 03/25/25 07:40 03/25/25 07:40 Narrative Exam Constitutional: Well nourished and in no acute distress CVS: RRR, S1 and S2 present, no murmurs, rubs or gallops . RESP: CTAB, no SOB, no rales, rhonchi or wheezing. No respiratory Distress GI: Obese but soft with Normal BS, Nontender/Nondistended. MSK: Full range of motion, No trauma or deformities or masses. Skin: Warm to touch, Dry. No rashes or lesions. No hematomas Neuro: director stage II-XII grossly intact. Sensation grossly intact. Psych: (AAO) x3 . Appropriate mood and affect. Objective Labs 03/26/25 05:06 03/26/25 05:06 Labs: Laboratory Results - last 24 hr 03/24/25 03/24/25 03/25/25 13:20 20:39 05:17 WBC 4.0 D RBC 3.46 L Hgb 10.3 L Hct 30.3 L MCV 88 MCH 29.8 MCHC 34.0 RDW Std Deviation 43.1 Plt Count 163 D Neut % (Auto) 48 Lymph % (Auto) 39 [place] % (Auto) 7 Eos % (Auto) 4 Baso % (Auto) 2 Neut # (Auto) 1.9 Lymph # (Auto) 1.5 [place] # (Auto) 0.3 Eos # (Auto) 0.2 Baso # (Auto) 0.1 Immature Gran # (Auto) 0.01 H Absolute Nucleated RBC 0.00 Immature Gran % 0 Nucleated RBC % 0 Retic Count (auto) 1.8 H Absolute Retic 62.6 Immature Retic Fraction 27.1 H Retic Hgb Content CHr 33.5 Sodium 141 140 Potassium 4.0 4.4 Chloride 107 106 Carbon Dioxide 23.8 23.3 Anion Gap 10 11 BUN < 5 L < 5 L Creatinine 0.8 0.8 Estim Creat Clear Calc 113.6 113.6 eGFR > 60 > 60 BUN/Creatinine Ratio 6 L 6 L Glucose 197 H 300 H D Calculated Osmolality 283 287 Lactic Acid 1.3 Calcium 8.1 L 8.4 Corrected Calcium 8.1 L 8.6 Phosphorus 1.2 L 2.5 3.6 Magnesium 2.1 Iron 21 L TIBC 372 Iron Saturation 5 L Unsat Iron Binding 351 H Ferritin 18 Total Bilirubin 0.2 L AST 19 ALT 30 Alkaline Phosphatase 50 Total Protein 6.0 Albumin 4.0 3.7 Globulin 2.3 Albumin/Globulin Ratio 1.6 ABG Interpretation ABG results: 03/23/25 22:12 VBG pH 7.25 L VBG pCO2 34 L VBG pO2 27 VBG Base Excess -11 L Quality Measures Quality Measures none Assessment & Plan Assessment Current Active Medications: Generic Name Dose Route Start Last Admin Trade Name Freq PRN Reason Stop Dose Admin Acetaminophen 650 mg 03/24/25 00:35 Acetaminophen 325 Mg Tablet PO 04/23/25 00:34 Q6H PRN Fever >101.5 Albuterol 1 puff 03/24/25 00:43 Albuterol Inh 8 Gm INH 04/23/25 00:42 QID PRN Bronchospasm Albuterol/Ipratropium 3 ml 03/24/25 08:40 Albuterol/Ipratropium (Duoneb) Rt Emily 3 Ml Nebu INH 04/23/25 08:39 Q6HRRT PRN SHORTNESS OF BREATH OR WHEEZE Aspirin 81 mg 03/24/25 21:00 03/24/25 21:00 Aspirin Ec 81 Mg Tabec PO 04/23/25 20:59 81 mg HS MICHAEL Administration Atorvastatin Calcium 40 mg 03/24/25 21:00 03/24/25 21:00 Atorvastatin Calcium 20 Mg Tablet PO 04/23/25 20:59 40 mg HS MICHAEL Administration Dextrose 25 ml 03/24/25 14:17 Dextrose 50%-Water Inj 50 Ml Syringe IV 04/23/25 14:16 Q15MIN PRN BG 50-70 responsive npo pt Dextrose 50 ml 03/24/25 14:17 Dextrose 50%-Water Inj 50 Ml Syringe IV 04/23/25 14:16 Q15MIN PRN BG <50 OR BG <70 & pt unresponsive Enoxaparin Sodium 40 mg 03/24/25 09:00 03/25/25 09:22 Enoxaparin Sod Inj 40 Mg/0.4 Ml Syringe SC 04/07/25 08:59 40 mg QDAY MICHAEL Administration Fenofibrate 145 mg 03/24/25 09:00 03/25/25 09:45 Fenofibrate 145 Mg Tablet (Non-Formulary) PO 04/23/25 08:59 145 mg QDAY MICHAEL Administration Ferrous Sulfate 325 mg 03/25/25 10:30 03/25/25 11:10 Ferrous Sulf 325 Mg Tablet PO 04/24/25 10:29 325 mg QOD MICHAEL Administration Gabapentin 600 mg 03/24/25 02:00 03/25/25 09:28 Gabapentin 300 Mg Capsule PO 04/23/25 01:59 600 mg Q4HR MICHAEL Administration Glucagon 1 mg 03/24/25 14:17 Glucagon Inj 1 Mg Vial IM Q15MIN PRN BG <70, and no IV access Insulin Glargine 80 unit 03/25/25 21:00 Insulin Glargine (Lantus) 5 Unit/0.05 Ml (Per 5 Units) SC 04/24/25 20:59 HS MICHAEL Insulin Human Lispro 0 unit 03/24/25 17:00 03/25/25 07:58 Insulin Lispro (Admelog) 1 Unit/0.01 Ml Unit SC 04/23/25 16:59 5 unit AC MICHAEL Administration Protocol Melatonin 9 mg 03/24/25 21:00 03/24/25 21:00 Melatonin 3 Mg Tablet PO 04/23/25 20:59 9 mg HS MICHAEL Administration Methocarbamol 750 mg 03/24/25 21:00 03/24/25 21:02 Methocarbamol 500 Mg Tablet PO 04/23/25 20:59 750 mg HS MICHAEL Administration Metoprolol Succinate 50 mg 03/25/25 09:00 03/25/25 09:23 Metoprolol Succinate Xl 25 Mg Tabcr PO 04/24/25 08:59 50 mg QDAY MICHAEL Administration Non-Formulary Medication 2 gm 03/24/25 09:00 03/25/25 09:45 Icosapent Ethyl [Vascepa] PO 04/23/25 08:59 Not Given BID MICHAEL Ondansetron HCl 4 mg 03/24/25 00:35 Ondansetron Inj 2 Mg/Ml Inj 2 Ml IV 04/23/25 00:34 Q6H PRN NAUSEA OR VOMITING Protocol Quetiapine Fumarate 400 mg 03/24/25 21:00 03/24/25 21:01 Quetiapine Fumarate 100 Mg Tablet PO 04/23/25 20:59 400 mg QPM MICHAEL Administration Topiramate 100 mg 03/24/25 09:00 03/25/25 09:24 Topiramate 100 Mg Tablet PO 04/23/25 08:59 100 mg BID MICHAEL Administration Plan 49-year-old female with past medical history of insulin-dependent diabetes mellitus since the age of 20, manic bipolar disorder, history of arrhythmia on metoprolol, hyperlipidemia, insomnia who presented to [facility] with chief complaint of intractable nausea and vomiting found to be in DKA; being downgraded from ICU off insulin gtt. #DKA - resolved #Insulin-dependent Type 2 Diabetes Mellitus #Metabolic acidosis - resolving #Electrolyte Abnormalities In the setting of longstanding insulin-dependent type 2 diabetes mellitus Metabolic acidosis likely secondary to diabetic ketoacidosis Presenting with bicarb 14.1, anion gap 23, beta hydroxybutyrate 5.9, glucose 361 AG closed x3. Patient received 70 of lantus and tolerating full liquid diet Plan: Increased Lantus to 80u HS Lispro 20u premeal SSI Diabetic Education; patient could benefit from CGM Replete lytes as needed #Sinus tachycardia currently with a history of arrhythmia Heart rate around 120s On home metoprolol succinate 100mg po daily Plan: Tele monitoring Continue metoprolol succinate 50mg as patient's BP is on softer side (systolic 120s) #Iron deficiency anemia Reticulocyte count as expected elevated Iron panel and ferritin show signs of iron deficiency anemia Plan: Replete with iron supplementation #Manic bipolar disorder On Topamax 100 mg p.o. twice daily and Seroquel 400 mg p.o. every afternoon and gabapentin 600 mg p.o. Q6 hourly for peripheral neuropathy Plan: Continue home medications #Hyperlipidemia On home atorvastatin 40mg po qday Plan: Continue home medication Hospital Management: DVT prophylaxis: Lovenox 40 subcutaneous daily GI prophylaxis: Not needed Diet: carb consistent low diet Lines: Peripheral IVs Dispo: Managing insulin regimen; anticipate DC within the next 24-48 hours CODE STATUS: Full code Patient seen and assessed with attending Dr. Kamran Renteria, PGY-1 Attending Provider Attestation/Addendum Fara Pereyra, , attest that I was physically present for the marie portions of the service and evaluated the patient with the resident and I reviewed and discussed the case with the resident and agree with the resident's findings and plans of care as documented above Patient seen and evaluated this AM. She states that she is very tired. She had nausea and vomiting for 5 days and during that time did not administer any of her insulin. She otherwise denies any fevers or chills, abdominal pain, dysuria, diarrhea. BG remains elevated in the 300s. Will continue with her home regimen and uptitrate insulin as needed. Anticipate DC in next 24h if BG are better controlled.
[2025-03-25] MEDS: Milk Of Magnesia Susp 30 ML UDC PO (15:29)
--- NOTE | 2025-03-25 15:38 | PC.NURSE ---
20 units lispro ordered scheduled AC. Contacted Dr. Christine to clarify the order. Dr. Christine said to give the scheduled 20units AC and Hold the sliding scale.
[2025-03-25] MEDS: INSULIN LISPRO (AdmeLOG) 1 UNIT/0.01 ML UNIT 20 UNIT SC (17:18)
[2025-03-25] MEDS: ACETAMINOPHEN 325 MG TABLET 650 MG PO (17:57)
[2025-03-25] MEDS: QUEtiapine FUMARATE 100 MG TABLET 400 MG PO (20:17)
[2025-03-25] MEDS: methocarbamoL 500 MG TABLET 750 MG PO (20:17)
[2025-03-25] MEDS: MELATONIN 3 MG TABLET 9 MG PO (20:17)
[2025-03-25] MEDS: ATORVASTATIN CALCIUM 20 MG TABLET 40 MG PO (20:17)
[2025-03-25] MEDS: ASPIRIN EC 81 MG TABEC PO (20:17)
[2025-03-25] MEDS: INSULIN GLARGINE (Lantus) 5 UNIT/0.05 ML (PER 5 UNITS) 80 UNIT SC (20:21)
[2025-03-26] VITALS (7 sets, daily range): BP systolic 95–131; BP diastolic 55–75; PULSE 84–96; RESP 16–18; TEMP 36.1–36.6; O2SAT 94–100
[2025-03-26] MEDS: GABAPENTIN 300 MG CAPSULE 600 MG PO ×4 (01:23→13:10)
[2025-03-26 06:15] LABS: Basophils # (Auto) 0.1 Thou/mm3 (0.0-0.2); Basophils % (Auto) 1 % (0-2.5); Eosinophils # (Auto) 0.2 Thou/mm3 (0.0-0.5); Eosinophils % (Auto) 4 % (0-10); Hematocrit 31.9 % (36.0-46.0); Hemoglobin 10.5 g/dL (12.0-16.0); Immature Granulocytes % (Auto) 0 % (0-0); Immature Granulocytes Auto 0.01 Thou/mm3 (0.00-0.00); Lymphocytes # (Auto) 2.8 Thou/mm3 (1.0-4.8); Lymphocytes % (Auto) 61 % (10-50); Mean Corpuscular HGB Conc 32.9 g/dl (31.0-37.0); Mean Corpuscular Hemoglobin 28.5 pg (25.0-35.0); Mean Corpuscular Volume 87 fL (80-100); Monocytes # (Auto) 0.4 Thou/mm3 (0.0-0.8); Monocytes % (Auto) 8 % (0-12); Neutrophils # (Auto) 1.1 Thou/mm3 (1.8-7.7); Neutrophils % (Auto) 25 % (37-80); Nucleated Red Blood Cell % 0 /100 WBC (0); Platelet Count 160 Thou/mm3 (140-440); RDW Standard Deviation 41.8 fL (36.4-46.3); Red Blood Count 3.68 Miln/mm3 (4.00-5.20); White Blood Count 4.6 Thou/mm3 (3.6-11.0)
[2025-03-26 06:23] LABS: Alanine Aminotransferase 26 U/L (10-49); Albumin, Serum 3.7 gm/dL (3.5-5.0); Albumin/Globulin Ratio 1.7 (1.2-2.2); Alkaline Phosphatase 51 U/L (46-116); Anion Gap 10 (7-16); Aspartate Amino Transferase 15 U/L (0-34); BUN/Creatinine Ratio 9 Ratio (12-20); Bilirubin,Total 0.2 mg/dL (0.3-1.2); Blood Urea Nitrogen 8 mg/dL (9-23); Calcium 8.6 mg/dL (8.3-10.6); Calcium (Corrected) 8.8 mg/dL (8.5-10.1); Carbon Dioxide 26.1 mMol/L (20.0-31.0); Chloride 106 mMol/L (98-107); Creatinine (Component) 0.9 mg/dL (0.6-1.3); Estimated Creatinine Clearance 104.2 mL/min (>60); Globulin 2.2 gm/dL (2.3-3.5); Glucose 276 mg/dL (74-106); Osmolality,Calculated 291 (275-295); Potassium 4.1 mMol/L (3.4-5.1); Sodium 142 mMol/L (136-145); Total Protein 5.9 gm/dL (5.7-8.2); eGFR > 60 See Note
[2025-03-26] MEDS: INSULIN LISPRO (AdmeLOG) 1 UNIT/0.01 ML UNIT SC (07:39)
[2025-03-26] MEDS: INSULIN LISPRO (AdmeLOG) 1 UNIT/0.01 ML UNIT 20 UNIT SC ×2 (07:40→11:45)
[2025-03-26] MEDS: METOPROLOL SUCCINATE XL 25 MG TABCR 50 MG PO (09:00)
[2025-03-26] MEDS: ENOXAPARIN SOD INJ 40 MG/0.4 ML SYRINGE SC (09:00)
[2025-03-26] MEDS: SENNA/DOCUSATE SOD 1 TAB TABLET PO (09:00)
[2025-03-26] MEDS: FENOFIBRATE 145 MG TABLET (NON-FORMULARY) PO (09:02)
[2025-03-26] MEDS: TOPIRAMATE 100 MG TABLET PO (09:03)
--- NOTE | 2025-03-26 09:54 | PC.NURSE ---
pt reports, she takes Vascepa once a month. Next dose is in April. Pharmacy made aware.
--- NOTE | 2025-03-26 12:17 | ESDS_ITS ---
<Statement entered by Fara Andrew DO - 03/27/25 07:51> I, Fara Andrew DO, attest that I was physically present for the marie portions of the service and evaluated the patient with the resident and I reviewed and discussed the case with the resident and agree with the resident's findings and plans of care as documented above Planned Discharge Date 03/26/25 DS: Providers Provider Date of admission: 03/24/25 00:35 Primary care physician: Espinoza Lugo MD Admitting Provider: Sylvain Brambila MD Attending Provider on Admission: Fara Andrew DO Consults: 03/24/25 02:49 Referral Registered Dietitian Urgent Comment: 03/24/25 17:47 Referral Registered Dietitian Routine Comment: Attending Provider on DC: Fara Andrew DO Discharging Provider: Jasson Velasquez MD DS: Diagnosis Problem List Completed Was Problem List Reviewed/Reconciled?: Yes Hospital Course Hospital Course Hospital course: Hospital Course: Ms Arvizu is a 49-year-old female with past medical history of insulin- dependent diabetes mellitus since the age of 20, manic bipolar disorder, history of arrhythmia on metoprolol, hyperlipidemia, insomnia who presented to [facility] with chief complaint of intractable nausea and vomiting found to be in DKA. She was downgraded from ICU once transitioned off of insulin drip to subcutaneous. Blood sugar improved to 160-200s on medical floors. Patient received diabetic education and counseling. Expresses that she will be more compliant. Problems on this admission: - DKA - resolved - Insulin-dependent Type 2 Diabetes Mellitus - Metabolic acidosis - resolving - Electrolyte Abnormalities - Sinus tachycardia currently with a history of arrhythmia - Iron deficiency anemia - Manic bipolar disorder - Hyperlipidemia Procedures: ICU for insulin drip for DKA - resolved Discharge instructions: - Follow-up with your PCP within 1-2 weeks after discharge. If you would like a primary provider, please call [phone] for an appointment - Take Glargine (long acting) 80 units nightly. Please do not skip this, may reduce dose if you did not have a meal. - Take insulin Regular (slower acting) 50 units with meals. Adjust as needed - Stop opiod and ibuprofen. May continue Gabapentin and other psych medicines, although strongly advise reconciliation with PCP for optimization, to avoid adverse reactions - Continue atorvastatin, you do not require fenofibrate. - Please continue Ozempic for weight loss. Consider Mounjaro if tolerated. - Continue other home medications as on discharge paperwork. - Return to ED if symptoms worsen. We are grateful to be able to participate in Ms Arvizu's care. We wish her the best. Plan of care discussed with attending Jasson Keating M.D. PGY2 Disclaimer: Minor errors in bead wrapper may be present as this note was dictated using voice recognition software. Status at Discharge Cognitive/behavioral status at discharge: Stable and returned to baseline Time Spent with Patient Time attestation: Total time spent providing and/or coordinating discharge services: more than 50% Time spent: Greater than 30 minutes Exam Vital Signs Temp Pulse Resp BP Pulse Ox O2 Del Method 97.9 F 93 18 100/65 95 Room Air 03/26/25 12:03/26/25 12:03/26/25 12:00 03/26/25 12:03/26/25 12:03/26/25 12:00 Narrative Exam Constitutional Alert, oriented x3 and comfortable. Obese BMI 40 HEENT Vision grossly intact. Patent nares. Trachea midline. Respiratory Chest normal on inspection and clear to auscultation bilaterally. Cardiovascular S1 and S2 audible, RRR. No murmurs or carotid bruit. No gross JVD. Abdominal Soft and BS +; distended non tender to palpation in all quadrants. Genitourinary No bladder tenderness, no flank pain. Normal to palpation. Musculoskeletal Extremities tone within normal limits. 1+ LE edema. Neurological CN II - XII grossly intact. Extremity motor and sensation grossly intact. Skin Warm, dry and intact. No apparent lesions. Psychiatric Patient has a good affect, is cooperative. Discharge Plan Plan Patient Disposition: HOME (Self Care) Patient condition on transfer: Stable Care Plan Goals: - Follow-up with your PCP within 1-2 weeks after discharge. If you would like a primary provider, please call [phone] for an appointment - Take Glargine (long acting) 80 units nightly. Please do not skip this, may reduce dose if you did not have a meal. - Take insulin Regular (slower acting) 50 units with meals. Adjust as needed - Stop opiod and ibuprofen. May continue Gabapentin and other psych medicines, although strongly advise reconciliation with PCP for optimization, to avoid adverse reactions - Continue atorvastatin, you do not require fenofibrate. - Please continue Ozempic for weight loss. Consider Mounjaro if tolerated. - Continue other home medications as on discharge paperwork. - Return to ED if symptoms worsen. Prescriptions/Referrals Prescriptions/Med Rec: New (DME) FreeStyle Jessica 3 Plus Sensor Device See Rx Instructions .Route Qty: 1 3RF Rx Instructions: As directed (DME) FreeStyle Jessica 3 [place] Misc See Rx Instructions .Route Qty: 1 3RF Rx Instructions: As directed insulin glargine 100 unit/mL (3 mL) insulin pen 80 unit subcut HS Qty: 15 0RF Humulin R Regular U-100 Insuln 100 unit/mL solution 50 unit subcut QAM 30 Days Qty: 15 0RF Continued quetiapine [Seroquel] 300 MG tablet 400 mg PO QPM Qty: 0 Synjardy 12.5-1,000 mg Tablet 12.5 tab PO BID aspirin 81 mg Tablet,Delayed Release (Dr/Ec) 1 tab PO HS furosemide [Lasix] 20 mg Tablet 20 mg PO QDAY sucralfate 1 gram Tablet 1 g PO BID atorvastatin 40 mg Tablet 40 mg PO QDAY benztropine 2 mg tablet 2 mg PO QDAY Patient Comments: TAKE ONE TABLET BY MOUTH AT BEDTIME clonidine HCl 0.2 mg tablet 0.2 mg PO HS Patient Comments: TAKE ONE TABLET BY MOUTH AT BEDTIME amitriptyline 50 mg tablet 50 mg PO HS Patient Comments: TAKE ONE TABLET BY MOUTH AT BEDTIME metoprolol succinate 100 mg tablet extended release 24 hr 100 mg PO QDAY Patient Comments: TAKE ONE TABLET BY MOUTH EVERY DAY FOR BLOOD PRESSURE medroxyprogesterone [Provera] 10 mg Tablet 10 mg PO QDAY methocarbamol 500 mg Tablet 750 mg PO Q4H PRN (Reason: muscle spasm) Rx Instructions: FOR MUSCLE SPASMS gabapentin 600 mg Tablet 600 mg PO Q4HR topiramate [Topamax] 100 mg Tablet 100 mg PO BID albuterol sulfate 90 mcg/actuation Hfa Aerosol Inhaler 1 puff INHALATION QID PRN (Reason: Bronchospasm) acetaminophen 500 mg tablet 500 mg PO Q6H PRN (Reason: fever or pain) Qty: 20 0RF Discontinued Novolin R Regular U100 Insulin 100 U/ML solution 50 unit PO QDWM Qty: 0 metoprolol tartrate 50 MG tablet 100 mg PO DAILY Qty: 0 pantoprazole 40 mg Tablet,Delayed Release (Dr/Ec) 40 mg PO BID melatonin 10 mg Tablet 40 mg PO HS ibuprofen 800 mg tablet 800 mg PO TID PRN (Reason: pain) Qty: 30 0RF hydrocodone-acetaminophen 5-325 mg tablet 1 tab PO BID MDD 10 PRN (Reason: pain) Qty: 6 0RF quetiapine 400 mg tablet 400 mg PO HS Patient Comments: TAKE ONE TABLET BY MOUTH AT BEDTIME benztropine [Cogentin] 0.5 mg Tablet 0.5 mg PO HS pioglitazone [Actos] 45 mg Tablet 45 mg PO QDAY fenofibrate 160 mg Tablet 160 mg PO QDAY insulin glargine [Basaglar KwikPen U-100 Insulin] 100 unit/mL (3 mL) Insulin Pen 80 unit SUBCUT QPM Referrals: Espinoza Lugo MD [Primary Care Provider] - Patient/Caregiver Discharge Instructions Discharge Activity: resume usual activities Education Materials: Using a Blood Sugar Log, Managing Type 2 Diabetes, Diabetes: Caring for Your Body Print Language: Yoruba Stand Alone Forms: Rabia Award Info., Patient Portal Info Letter Discharge Order Discharge Orders: Discharge (Routine); Ordered 03/26/25 Ordered By: Jasson Velasquez Quality Discharge Quality Measures VTE prophylaxis
== END 2025-03-26 15:10 | disposition home or self-care (01) | DRG 420 ==
LOC: SERX 20:51 → SERHOLD 03-24 01:29 → S2SX 03-24 06:51 → SERHOLD 03-24 08:33 → S2SX 03-24 12:50 → S3SX 03-24 17:43
PROVIDERS: Physician Assistant; Student in an Organized Health Care Education/Training Program; Admitting Provider Internal Medicine; Emergency Provider Emergency Medicine; PCP Family Medicine; Visit Provider Internal Medicine
DX: E11.10 Type 2 diabetes mellitus with ketoacidosis without coma (principal); F31.9 Bipolar disorder, unspecified; I10 Essential (primary) hypertension; D64.9 Anemia, unspecified; E78.5 Hyperlipidemia, unspecified; J45.909 Unspecified asthma, uncomplicated; R00.0 Tachycardia, unspecified; K21.9 Gastro-esophageal reflux disease without esophagitis; D50.9 Iron deficiency anemia, unspecified; E11.40 Type 2 diabetes mellitus with diabetic neuropathy, unspecified; E66.9 Obesity, unspecified; E78.00 Pure hypercholesterolemia, unspecified; Z79.4 Long term (current) use of insulin; Z79.84 Long term (current) use of oral hypoglycemic drugs; Z79.899 Other long term (current) drug therapy; Z68.41 Body mass index [BMI] 40.0-44.9, adult
CPT/HCPCS: 36415; 71045; 80053; 80069; 80307; 81001; 81025; 82010; 82728; 82803; 83036; 83540; 83550; 83605; 83690; 83735; 84100; 84145; 84484; 85025; 85046; 87040; 87081; 87400; 87811; 93005; 93225; 93306; 94664; 96361; 96374; 99285; J1650; J1815; J2405; J2470; J3475; J3480; J7120; J7121; J7999; A9270

== ENCOUNTER 2025-08-11 14:18 | Emergency (ER) | payer MEDICAID, SELFPAY ==
[2025-08-11 14:19] VITALS: BP 127/82; PULSE 104; RESP 18; TEMP 36.8; O2SAT 95
[2025-08-11 14:22] VITALS: BMI 35.4
--- NOTE | 2025-08-11 14:50 | XR_ITS ---
EXAMINATION: Lumbar spine 3 views TECHNIQUE: AP lateral, lateral lower lumbar spine 3 views Date and time: August 11, 2025, 1505 hours INDICATIONS: Patient fell down stairs today with him to the lower back, lower back pain. FINDINGS: Adequate alignment lumbar vertebral bodies on the lateral view No lumbar fracture Diffuse moderate to advanced lumbar degenerative disc disease most severe at L4-L5, L5-S1 IMPRESSION: No acute lumbar fracture
--- NOTE | 2025-08-11 14:50 | XR_ITS ---
Examination: CT brain head without contrast. 2-D sagittal coronal reconstructions Date and time of exam: August 11, 2025, 1533 hours INDICATIONS: Ground-level fall today with injury of the head, head pain CTDI: vol (mGy): 53 DLP: (mGycm): 1013 Technique: Multiple CT axial sections of the brain have been obtained, 5 mm slice thickness. Contrast has not been administered. 2-D sagittal, coronal reconstructions have been obtained Low dose protocols were performed. One or more of the following dose reduction techniques were used; automated exposure control, adjustment of the mA and/or KV according to patient size, use of iterative reconstruction technique. Findings: No significant ventricular enlargement. Intra-axial or extra-axial hemorrhage density is not seen. No mass effect or midline shift Basal cisterns are not remarkable. Fourth ventricle is midline. Cranial vault intact. Impression: Negative for acute hemorrhage, mass effect or midline shift
--- NOTE | 2025-08-11 14:50 | XR_ITS ---
Examination: Right hip AP, lateral, AP pelvis 3 views Technique: Hip AP lateral, AP pelvis, 3 views Exam date and time: August 11, 2025, 1457 hours INDICATIONS: Patient fell down stairs today with injury of the right hip, right hip pain. FINDINGS: No right hip fracture or dislocation Left hip bones of the pelvis intact IMPRESSION: No acute hip or pelvic fracture.
--- NOTE | 2025-08-11 14:50 | XR_ITS ---
Examination: CT cervical spine without contrast 2-D sagittal reconstructions 2-D coronal reconstructions 3-D reconstructions. Exam date and time: August 11, 2025, 1533 hours INDICATIONS: Ground-level fall today with injury of the neck, neck pain CTDI:vol (mGy) 20.6 DLP: (mGycm) 195 Technique: Multiple 2 mm axial sections of the cervical spine have been obtained. The coronal and sagittal reconstructions have been obtained. 3-D reconstructions have been obtained. Low dose protocols were performed. One or more of the following dose reduction techniques were used; automated exposure control, adjustment of the mA and/or KV according to patient size, use of iterative reconstruction technique. Findings: Axial sections demonstrate intact base of the skull. C1 exhibit satisfactory relationship to the odontoid. No acute cervical vertebral body fracture seen. Alignment posterior spinous processes satisfactory. Impression: No acute cervical fracture.
--- NOTE | 2025-08-11 14:51 | PD.EDFALL ---
ED Fall Injury RME/HPI General Chief Complaint: Fall Stated Complaint: FALL Time Seen by Provider: 08/11/25 14:34 Arrival date/time: 08/11/25 14:18 RME / HPI RME / HPI Narrative: 49-year-old female patient came in for evaluation regarding fall. Patient sustained a ground-level fall hitting his head on the concrete resulting into pain to the left temporal area, with contusion hematoma. Patient also complaining of pain to the right hip going to the lumbar area severity moderate able to ambulate but limping. Denies LOC no nausea no vomiting. Incident happened about an hour ago patient is taking 81 mg of aspirin daily. Related Data Home Medications ?Medication ?Instructions ?Recorded ?Confirmed quetiapine 300 mg tablet (Seroquel) 400 mg PO QPM #0 tabs 09/16/16 06/24/23 aspirin 81 mg tablet,delayed 1 tab PO HS 02/14/18 03/24/25 release empagliflozin 12.5 mg-metformin 12.5 tab PO BID 02/14/18 03/24/25 1,000 mg tablet (Synjardy) furosemide 20 mg tablet (Lasix) 20 mg PO QDAY 02/14/18 03/24/25 sucralfate 1 gram tablet 1 g PO BID 05/02/19 06/24/23 atorvastatin 40 mg tablet 40 mg PO QDAY 05/24/21 03/24/25 albuterol sulfate 90 mcg/actuation 1 puff inhalation QID PRN 06/24/23 03/24/25 aerosol inhaler Bronchospasm gabapentin 600 mg tablet 600 mg PO Q4HR 06/24/23 03/24/25 medroxyprogesterone 10 mg tablet 10 mg PO QDAY 06/24/23 06/24/23 (Provera) methocarbamol 500 mg tablet 750 mg PO Q4H PRN muscle spasm 06/24/23 03/24/25 topiramate 100 mg tablet (Topamax) 100 mg PO BID 06/24/23 06/24/23 amitriptyline 50 mg tablet 50 mg PO HS 03/24/25 03/24/25 benztropine 2 mg tablet 2 mg PO QDAY 03/24/25 03/24/25 clonidine HCl 0.2 mg tablet 0.2 mg PO HS 05/22/25 05/22/25 metoprolol succinate 100 mg 100 mg PO QDAY 03/24/25 03/24/25 tablet,extended release 24 hr Previous Rx's ?Medication ?Instructions ?Recorded acetaminophen 500 mg tablet 500 mg PO Q6H PRN fever or pain 06/25/23 #20 tabs blood-glucose sensor (FreeStyle #1 ea 03/25/25 Jessica 3 Plus Sensor device) 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 Review of Systems Review of Systems Narrative Review of Systems: Review of system reviewed and within normal limits except mentioned in HPI ED Exam Narrative Physical exam: VITAL SIGNS: Reviewed. GENERAL APPEARANCE: Alert and interactive, follows commands, no acute distress, HEAD AND FACE: +2x3 cm contusion hematoma, left temporal area with tenderness ENT: PERRL, pink conjunctivitis, eyelid no trauma, Mucous membrane moist. NECK: Supple, nontender, no nuchal rigidity. CHEST: No tenderness, no crepitus, no paradoxical movement, no retractions. LUNGS: Clear, well ventilated, symmetric, no rales, no wheezing, no ronchi, no stridor, good breath sounds bilaterally. HEART: Regular rate, regular rhythm, no murmur, no gallops. ABDOMEN: Soft, positive bowel sounds, nondistended, no guarding, nontender, no rebound, no masses, RECTAL: Deferred. GENITAL: Deferred. NEUROLOGICAL: Gross motor function intact sensory function intact, Appropriate for age. MUSCULOSKELETAL: Left low back tenderness, full range of motion. EXTREMITIES: Right hip tenderness, full range of motion. SKIN: Color pink, dry, no rash, no lacerations, no abrasions, no contusions. LYMPHATICS: Deferred. Course Quality Measures none Orders Category Date Time Status CT cervical spine wo con Stat Exams 08/11/25 14:[address] head/brain wo con Stat Exams 08/11/25 14:50 Completed XR hip RT w pelvis 2-3V Stat Exams 08/11/25 14:50 Completed XR lumbar spine 2-3V Stat Exams 08/11/25 14:50 Completed Acetaminophen Tab [Tylenol ES Tab] Med 08/11/25 14:50 Discontinued 1,000 mg PO X1 ONE Vital Signs Vital signs: Vital Signs Temperature 98.3 F 08/11/25 14:19 Pulse Rate 104 H 08/11/25 14:19 Respiratory Rate 18 08/11/25 14:19 Blood Pressure 127/82 08/11/25 14:19 Pulse Oximetry (%) 95 08/11/25 14:19 Oxygen Delivery Method Room Air 08/11/25 14:19 Fall MDM Narrative [facility] Narrative:: CT scan of the head came back unremarkable. X-ray of the lumbar spine and x-ray of the hip also came back normal. CT scan of the cervical spine also came back unremarkable results discussed with the patient. Patient stable for discharge home. Patient was noted to be ambulatory prior to discharge. Patient data External records reviewed:: None Clinical information provided by:: patient and family Social determinants that could affect healthcare access:: none Patient has the following chronic illnesses:: None How is presenting disease/condition affected by chronic disease/condition?: no chronic disease Evaluation data The following diagnostics were reviewed and interpreted by me:: radiology exam(s) Lab and/or radiology exams considered but not ordered:: None Interpretation Summary: See results [facility] Medications / Prescriptions Medications or Prescriptions considered but not ordered:: none Medication administrations:: Medication Administration History Discontinued Medications Acetaminophen (Acetaminophen 500 Mg Tablet) 1,000 mg PO X1 ONE Stop: 08/11/25 14:51 Last Admin: 08/11/25 15:46 Dose: 1,000 mg Documented By: Tylenol Consultations Consultation(s) initiated? (list below): No Diagnosis Fall Differential Diagnosis: compression fracture and other (Skull contusion, hip pain, intracranial bleed) Most likely diagnosis given after review of the tests above:: Scalp contusion, hip pain, status post fall Admission Indicated Admission indicated?: not indicated Admission Request Was there a request for admission?: No Disposition Plan Disposition Plan: Discharge Discharge Attestation Discharge Attestation: The patient and all family members were given an opportunity to ask questions and understood the discharge instructions. Discharge instructions specifically effects, indications for sooner follow up or return to the emergency department, and the expected course of current diagnosis. Patient condition: Stable Discharge Plan Plan Patient Disposition: HOME (Self Care) Discharge Disposition comment: stable Prescriptions/Referrals Prescriptions/Med Rec: No Action quetiapine [Seroquel] 300 MG tablet 400 mg PO QPM Qty: 0 Synjardy 12.5-1,000 mg Tablet 12.5 tab PO BID aspirin 81 mg Tablet,Delayed Release (Dr/Ec) 1 tab PO HS furosemide [Lasix] 20 mg Tablet 20 mg PO QDAY sucralfate 1 gram Tablet 1 g PO BID atorvastatin 40 mg Tablet 40 mg PO QDAY benztropine 2 mg tablet 2 mg PO QDAY Patient Comments: TAKE ONE TABLET BY MOUTH AT BEDTIME clonidine HCl 0.2 mg tablet 0.2 mg PO HS Patient Comments: TAKE ONE TABLET BY MOUTH AT BEDTIME amitriptyline 50 mg tablet 50 mg PO HS Patient Comments: TAKE ONE TABLET BY MOUTH AT BEDTIME metoprolol succinate 100 mg tablet extended release 24 hr 100 mg PO QDAY Patient Comments: TAKE ONE TABLET BY MOUTH EVERY DAY FOR BLOOD PRESSURE (DME) FreeStyle Jessica 3 Plus Sensor Device See Rx Instructions .Route Qty: 1 3RF Rx Instructions: As directed (DME) FreeStyle Jessica 3 [place] Misc See Rx Instructions .Route Qty: 1 3RF Rx Instructions: As directed insulin glargine 100 unit/mL (3 mL) insulin pen 80 unit subcut HS Qty: 15 0RF medroxyprogesterone [Provera] 10 mg Tablet 10 mg PO QDAY methocarbamol 500 mg Tablet 750 mg PO Q4H PRN (Reason: muscle spasm) Rx Instructions: FOR MUSCLE SPASMS gabapentin 600 mg Tablet 600 mg PO Q4HR topiramate [Topamax] 100 mg Tablet 100 mg PO BID albuterol sulfate 90 mcg/actuation Hfa Aerosol Inhaler 1 puff INHALATION QID PRN (Reason: Bronchospasm) acetaminophen 500 mg tablet 500 mg PO Q6H PRN (Reason: fever or pain) Qty: 20 0RF Referrals: No Primary/Family,Physician [Primary Care Provider] - In 1 week Problem List Clinical Impression: Contusion of scalp, Acute hip pain, Fall Patient/Caregiver Discharge Instructions Discharge Activity: activity as tolerated Education Materials: ED Scalp Contusion Additional Instructions: Thank you for the opportunity for serving you today. You are stable for discharged . You are advised to: Follow-up with your PCP in 1 to 2 days Return to ED for worsening of symptoms Increase oral fluids Take [id number] Motrin as needed for pain Print Language: Colombian Stand Alone Forms: Rabia Award Info., Patient Portal Info Letter PA/MEDICAL SALES REPRESENTATIVE Supervising Physician PA/MEDICAL SALES REPRESENTATIVE Supervising Physician: MD Ze
[2025-08-11] MEDS: ACETAMINOPHEN 500 MG TABLET 1000 MG PO (15:46)
[2025-08-11 16:18] VITALS: BP 123/82; PULSE 93; RESP 18; TEMP 37.1; O2SAT 98
== END 2025-08-11 17:23 | disposition home or self-care (01) ==
PROVIDERS: Emergency Provider Nurse Practitioner Family
DX: S00.03XA Contusion of scalp, initial encounter (principal); S79.911A Unspecified injury of right hip, initial encounter; S19.9XXA Unspecified injury of neck, initial encounter; M54.50 Low back pain, unspecified; W18.30XA Fall on same level, unspecified, initial encounter
CPT/HCPCS: 70450; 72100; 72125; 73502; 99284; A9270

== ENCOUNTER 2025-09-11 17:54 | Emergency (ER) | payer MEDICAID, SELFPAY ==
[2025-09-11 18:24] VITALS: BP 151/91; PULSE 95; RESP 16; TEMP 37.4; O2SAT 97; BMI 37.5
--- NOTE | 2025-09-11 19:41 | XR_ITS ---
Examination: Foot, right, 3 views Technique: AP, oblique, lateral views foot, 3 views Date and time of exam: September 11, 2025, 1958 hours INDICATIONS: Injury to the foot today, foot pain. FINDINGS: No acute fracture No dislocation No foreign body IMPRESSION: No acute fracture
--- NOTE | 2025-09-11 19:41 | XR_ITS ---
EXAMINATION: Ankle, left 2 views. Technique: AP lateral left ankle 2 views Date and time: September 11, 20252000 hours INDICATIONS: Twisting injury to the ankle today. FINDINGS: No fracture or dislocation No foreign body IMPRESSION: No fracture or dislocation
--- NOTE | 2025-09-11 19:41 | XR_ITS ---
Examination: Duplex scan of the lower extremity, unilateral left Date and time of exam: Left September 11, 2025, 2035 hours INDICATIONS: Left leg pain after falling 2 days ago Technique: Duplex scan of the extremity veins using B-mode/grayscale imaging and Doppler spectral analysis and color flow Attention is directed to internal echogenicity, compression and augmentation involving these veins, color flow assessment, spectral analysis Findings: Major deep venous structures in the extremity demonstrate normal course and caliber. There is no evidence of deep vein thrombosis. Normal color flow and spectral analysis Impression: Negative for DVT..
[2025-09-11 20:35] LABS: Basophils # (Auto) 0.1 Thou/mm3 (0.0-0.2); Basophils % (Auto) 1 % (0-2.5); Eosinophils # (Auto) 0.2 Thou/mm3 (0.0-0.5); Eosinophils % (Auto) 3 % (0-10); Hematocrit 36.6 % (36.0-46.0); Hemoglobin 11.8 g/dL (12.0-16.0); Immature Granulocytes Auto 0.03 Thou/mm3 (0.00-0.00); Lymphocytes # (Auto) 3.7 Thou/mm3 (1.0-4.8); Lymphocytes % (Auto) 40 % (10-50); Mean Corpuscular HGB Conc 32.2 g/dl (31.0-37.0); Mean Corpuscular Hemoglobin 27.5 pg (25.0-35.0); Mean Corpuscular Volume 85 fL (80-100); Monocytes # (Auto) 0.6 Thou/mm3 (0.0-0.8); Monocytes % (Auto) 6 % (0-12); Neutrophils # (Auto) 4.7 Thou/mm3 (1.8-7.7); Neutrophils % (Auto) 50 % (37-80); Nucleated Red Blood Cell # 0.00 Thou/mm3 (0.00-0.00); Nucleated Red Blood Cell % 0 /100 WBC (0); Platelet Count 266 Thou/mm3 (140-440); RDW Standard Deviation 47.6 fL (36.4-46.3); Red Blood Count 4.29 Miln/mm3 (4.00-5.20); White Blood Count 9.4 Thou/mm3 (3.6-11.0)
[2025-09-11 20:51] LABS: Alanine Aminotransferase 18 U/L (10-49); Albumin, Serum 4.8 gm/dL (3.5-5.0); Albumin/Globulin Ratio 1.8 (1.2-2.2); Alkaline Phosphatase 68 U/L (46-116); Anion Gap 11 (7-16); Aspartate Amino Transferase 15 U/L (0-34); BUN/Creatinine Ratio 12 Ratio (12-20); Bilirubin,Total 0.2 mg/dL (0.3-1.2); Blood Urea Nitrogen 11 mg/dL (9-23); Calcium 9.6 mg/dL (8.3-10.6); Calcium (Corrected) 9.6 mg/dL (8.5-10.1); Carbon Dioxide 26.1 mMol/L (20.0-31.0); Chloride 105 mMol/L (98-107); Creatinine (Component) 0.9 mg/dL (0.6-1.3); Estimated Creatinine Clearance 96.1 mL/min (>60); Globulin 2.6 gm/dL (2.3-3.5); Glucose 119 mg/dL (74-106); Osmolality,Calculated 283 (275-295); Potassium 4.2 mMol/L (3.4-5.1); Sodium 142 mMol/L (136-145); Total Protein 7.4 gm/dL (5.7-8.2); Uric Acid 3.7 mg/dL (3.1-7.8); eGFR > 60 See Note
--- NOTE | 2025-09-11 21:51 | PD.EDLOWEX ---
Lower Extremity Injury RME/HPI General Chief Complaint: Extremity Injury, Lower Stated Complaint: LEFT LEG PAIN SP FALL Time Seen by Provider: 09/11/25 18:28 Arrival date/time: 09/11/25 17:54 Related Data Home Medications ?Medication ?Instructions ?Recorded ?Confirmed quetiapine 300 mg tablet (Seroquel) 400 mg PO QPM #0 tabs 09/16/16 06/24/23 aspirin 81 mg tablet,delayed 1 tab PO HS 02/14/18 03/24/25 release empagliflozin 12.5 mg-metformin 12.5 tab PO BID 02/14/18 03/24/25 1,000 mg tablet (Synjardy) furosemide 20 mg tablet (Lasix) 20 mg PO QDAY 02/14/18 03/24/25 sucralfate 1 gram tablet 1 g PO BID 05/02/19 06/24/23 atorvastatin 40 mg tablet 40 mg PO QDAY 05/24/21 03/24/25 albuterol sulfate 90 mcg/actuation 1 puff inhalation QID PRN 06/24/23 03/24/25 aerosol inhaler Bronchospasm gabapentin 600 mg tablet 600 mg PO Q4HR 06/24/23 03/24/25 medroxyprogesterone 10 mg tablet 10 mg PO QDAY 06/24/23 06/24/23 (Provera) methocarbamol 500 mg tablet 750 mg PO Q4H PRN muscle spasm 06/24/23 03/24/25 topiramate 100 mg tablet (Topamax) 100 mg PO BID 06/24/23 06/24/23 amitriptyline 50 mg tablet 50 mg PO HS 03/24/25 03/24/25 benztropine 2 mg tablet 2 mg PO QDAY 03/24/25 03/24/25 clonidine HCl 0.2 mg tablet 0.2 mg PO HS 03/24/25 03/24/25 metoprolol succinate 100 mg 100 mg PO QDAY 03/24/25 03/24/25 tablet,extended release 24 hr Previous Rx's ?Medication ?Instructions ?Recorded acetaminophen 500 mg tablet 500 mg PO Q6H PRN fever or pain 06/25/23 #20 tabs blood-glucose sensor (FreeStyle #1 ea 03/25/25 Jessica 3 Plus Sensor device) blood-glucose,winter intern,cont #1 ea 03/25/25 (FreeStyle Jessica 3 [place]) insulin glargine 100 unit/mL (3 80 unit (0.8 mL) subcut HS #15 mL 03/26/25 mL) subcutaneous pen Allergies Allergy/AdvReac Type Severity Reaction Status Date / Time morphine Allergy Intermediate RED Verified 08/11/25 14:24 BLOTCHES. Course Orders Category Date Time Status US venous doppler LE LT Stat Exams 09/11/25 19:41 Completed XR ankle LT 2V Stat Exams 09/11/25 19:41 Completed XR foot comp LT min 3V Stat Exams 09/11/25 19:41 Completed CBC Stat Lab 09/11/25 20:14 Completed CMP [Comprehensive Metabolic Panel] Stat Lab 09/11/25 20:14 Completed Uric Acid Stat Lab 09/11/25 20:14 Completed Vital Signs Vital signs: Vital Signs Temperature 99.3 F 09/11/25 18:24 Pulse Rate 95 09/11/25 18:24 Respiratory Rate 16 09/11/25 18:24 Blood Pressure 151/91 H 09/11/25 18:24 Pulse Oximetry (%) 97 09/11/25 18:24 Oxygen Delivery Method Room Air 09/11/25 18:24 Discharge Plan Prescriptions/Referrals Prescriptions/Med Rec: No Action quetiapine [Seroquel] 300 MG tablet 400 mg PO QPM Qty: 0 Synjardy 12.5-1,000 mg Tablet 12.5 tab PO BID aspirin 81 mg Tablet,Delayed Release (Dr/Ec) 1 tab PO HS furosemide [Lasix] 20 mg Tablet 20 mg PO QDAY sucralfate 1 gram Tablet 1 g PO BID atorvastatin 40 mg Tablet 40 mg PO QDAY benztropine 2 mg tablet 2 mg PO QDAY Patient Comments: TAKE ONE TABLET BY MOUTH AT BEDTIME clonidine HCl 0.2 mg tablet 0.2 mg PO HS Patient Comments: TAKE ONE TABLET BY MOUTH AT BEDTIME amitriptyline 50 mg tablet 50 mg PO HS Patient Comments: TAKE ONE TABLET BY MOUTH AT BEDTIME metoprolol succinate 100 mg tablet extended release 24 hr 100 mg PO QDAY Patient Comments: TAKE ONE TABLET BY MOUTH EVERY DAY FOR BLOOD PRESSURE (DME) FreeStyle Jessica 3 Plus Sensor Device See Rx Instructions .Route Qty: 1 3RF Rx Instructions: As directed (DME) FreeStyle Jessica 3 [place] Misc See Rx Instructions .Route Qty: 1 3RF Rx Instructions: As directed insulin glargine 100 unit/mL (3 mL) insulin pen 80 unit subcut HS Qty: 15 0RF medroxyprogesterone [Provera] 10 mg Tablet 10 mg PO QDAY methocarbamol 500 mg Tablet 750 mg PO Q4H PRN (Reason: muscle spasm) Rx Instructions: FOR MUSCLE SPASMS gabapentin 600 mg Tablet 600 mg PO Q4HR topiramate [Topamax] 100 mg Tablet 100 mg PO BID albuterol sulfate 90 mcg/actuation Hfa Aerosol Inhaler 1 puff INHALATION QID PRN (Reason: Bronchospasm) acetaminophen 500 mg tablet 500 mg PO Q6H PRN (Reason: fever or pain) Qty: 20 0RF Referrals: No Primary/Family,Physician [Primary Care Provider] - In 1 week Patient/Caregiver Discharge Instructions Print Language: Romanian
== END 2025-09-11 22:27 | disposition home or self-care (01) ==
PROVIDERS: Nurse Practitioner Family; Emergency Provider Emergency Medicine
DX: M79.605 Pain in left leg (principal); W19.XXXA Unspecified fall, initial encounter
CPT/HCPCS: 36415; 73600; 73630; 80053; 84550; 85025; 93971; 99283